=== PATIENT | female | born 1940 | race Caucasian/White ===

== ENCOUNTER 2023-09-19 08:40 | Outpatient (RCR) | payer MEDICARE, OTHER, SELFPAY | END 2023-09-19 23:59 | disposition home or self-care (01) | LOC: RPT 08:40 | PROVIDERS: ATTENDING PHYSICIAN Internal Medicine Gastroenterology; FAMILY PHYSICIAN Internal Medicine | DX: M62.89 Other specified disorders of muscle (principal); N39.3 Stress incontinence (female) (male); K59.00 Constipation, unspecified; N39.41 Urge incontinence; Z73.6 Limitation of activities due to disability | CPT/HCPCS: 97163; 97530 ==

== ENCOUNTER → 2023-09-25 11:55 | Outpatient (REF) | payer MEDICARE, OTHER, SELFPAY | LOC: MRI 3T 11:55 | PROVIDERS: ATTENDING PHYSICIAN Internal Medicine Gastroenterology; PRIMARYCARE PHYSICIAN Internal Medicine | DX: K86.2 Cyst of pancreas (principal) | CPT/HCPCS: 74183; A9575 ==

== ENCOUNTER 2023-10-22 14:04 | Outpatient (RCR) | payer MEDICARE, OTHER, SELFPAY | END 2023-10-22 23:59 | disposition home or self-care (01) | LOC: RPT 14:04 | PROVIDERS: ATTENDING PHYSICIAN Internal Medicine Gastroenterology; FAMILY PHYSICIAN Internal Medicine | DX: M62.89 Other specified disorders of muscle (principal); N39.3 Stress incontinence (female) (male); K59.00 Constipation, unspecified; N39.41 Urge incontinence; Z73.6 Limitation of activities due to disability | CPT/HCPCS: 97110; 97112; 97140; 97530 ==

== ENCOUNTER 2023-11-18 14:12 | Outpatient (RCR) | payer MEDICARE, OTHER, SELFPAY | END 2023-11-18 23:59 | disposition home or self-care (01) | LOC: RPT 14:12 | PROVIDERS: ATTENDING PHYSICIAN Internal Medicine Gastroenterology; FAMILY PHYSICIAN Internal Medicine | DX: M62.89 Other specified disorders of muscle (principal); N39.3 Stress incontinence (female) (male); K59.00 Constipation, unspecified; N39.41 Urge incontinence; Z73.6 Limitation of activities due to disability | CPT/HCPCS: 97014; 97110; 97112; 97530 ==

== ENCOUNTER → 2023-12-09 13:26 | Outpatient (REF) | payer MEDICARE, OTHER, SELFPAY | LOC: PAVMRI 13:26 | PROVIDERS: ATTENDING PHYSICIAN Pain Medicine Interventional Pain Medicine; FAMILY PHYSICIAN Internal Medicine | DX: M54.16 Radiculopathy, lumbar region (principal) | CPT/HCPCS: 72148 ==

== ENCOUNTER → 2023-12-29 11:18 | Outpatient (REF) | payer MEDICARE, OTHER, SELFPAY ==
[2023-12-29 11:53] LABS: % Basophils 0.4 % (0-2); % Eosinophils 5.5 % (0-6); % Immature Granulocytes 0.3 % (0-0.5); % Lymphocytes 39.8 % (20.5-51.1); % Monocytes 11.5 % (1.7-9.3); % Neutrophils 42.5 % (42.2-75.2); Absolute Eosinophils 0.4 10^3/uL (0-0.7); Absolute Lymphocytes 2.7 10^3/uL (1.2-3.4); Absolute Monocytes 0.8 10^3/uL (0.1-0.6); Absolute Neutrophils 2.8 10^3/uL (1.4-6.5); Hematocrit 41.2 % (37.0-47.0); Hemoglobin 13.3 g/dL (12.0-16.0); Mean Corp Hgb Conc. 32.3 g/dL (33.0-37.0); Mean Corpuscular Volume 89.8 fL (81.0-99.0); Mean Platelet Volume 10.8 fL (7.4-10.4); Nucleated Red Blood Cells % 0 %; Platelet Count 197 10^3/uL (130-400); Red Blood Cell Count 4.59 10^6/uL (4.20-5.40); Red Cell Dist. Width 13.3 % (11.5-14.5); White Blood Cell Count 6.7 10^3/uL (4.8-10.8)
[2023-12-29 12:48] LABS: ALT (SGPT) 24 U/L (0-35); AST (SGOT) 27 U/L (14-36); Albumin 3.6 g/dl (3.5-5.0); Alkaline Phosphatase 66 U/L (38-126); Blood Urea Nitrogen 16 mg/dl (7-17); Calcium 9.3 mg/dl (8.4-10.2); Carbon Dioxide 30 mmol/L (22-30); Chloride 104 mmol/L (98-107); Glucose 85 mg/dl (70-99); HDL Cholesterol 82 mg/dl; LDL Cholesterol, Calculated 41 mg/dl; Potassium 3.7 mmol/L (3.5-5.1); Sodium 139 mmol/L (135-145); Total Bilirubin 0.7 mg/dl (0.2-1.3); Total Cholesterol 137 mg/dl (50-199); Total Protein 5.8 g/dl (6.3-8.2); Triglyceride 70 mg/dl (10-149); Very Low Density Lipoprotein 14 mg/dl (0-30); eGFR > 60.00
== END ==
LOC: REG 11:18
PROVIDERS: ATTENDING PHYSICIAN Internal Medicine
DX: I10 Essential (primary) hypertension (principal); E78.5 Hyperlipidemia, unspecified
CPT/HCPCS: 36415; 80053; 80061; 85025

== ENCOUNTER → 2024-01-28 12:47 | Outpatient (REF) | payer MEDICARE, OTHER, SELFPAY | LOC: RAD 12:47 | PROVIDERS: ATTENDING PHYSICIAN Internal Medicine | DX: M81.0 Age-related osteoporosis without current pathological fracture (principal) | CPT/HCPCS: 77080 ==

== ENCOUNTER 2024-03-05 23:13 | Observation (INO) | payer MEDICARE, OTHER, SELFPAY ==
[2024-03-05 15:36] VITALS: BP 131/81
--- NOTE | 2024-03-05 17:28 | ED.GENMED ---
History of Present Illness
General
Chief Complaint: Back Pain
Source: patient
Exam Limitations: none
Time Seen by Provider: 03/05/24 17:28
Nursing documentation reviewed up to this point in time: agreed with
History of Present Illness
History of Present Illness:
Patient to ED with complaint of left hip pain. Symptoms started 3 days ago. No history of trauma. Pain continues to worsen. Unable to bear weight now. Brought to ED by brother for eval.
Past History
Past History
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
diverticulitis, PNA, Kidney stones, Bronchiectasis, Migraines, Diverticulitis)
ED Past Surgical History: Gynecological (Hysterectomy), Orthopedic (Right knee replacement), Urological (Bladder suspension) and Other (Hernia repair, Bunionectomy Bilaterally)
Social History
Tobacco: Former smoker
Alcohol: None
Drug: None
Personal:
Living: with family
Employment: Retired
Family History
Family History: Other (Noncontributory)
Review of Systems
Review of Systems
Allergies reviewed?: Yes
All Other Systems: ROS reviewed and negative except as documented in HPI and ROS
Constitutional: Reports no symptoms
EENT: Reports no symptoms
Respiratory: Reports no symptoms
Cardiac: Reports no symptoms
ABD/GI: Reports no symptoms
: Reports no symptoms
Musculoskeletal: Reports joint pain (left hip pain)
Skin: Reports no symptoms
Neurological: Reports no symptoms
Psychiatric: Reports no symptoms
Phy Exam
General Physical Exam
General Presentation: well appearing and moderate distress
General age: appears stated age
General Skin: warm and dry
General Habitus: normal
General Mental: alert
Cardiovascular Exam
Cardiovascular Exam: regular rate/rhythm and no edema
Pulmonary Exam
Pulmonary Exam: no respiratory distress and chest non tender
Neurological Exam
Neurological Exam: alert and oriented x3
Musculoskeletal Exam
Musculoskeletal Exam: neuro vasc intact and other (Limited ROM to left hip. Pain laterally. No redness or swelling. Pain radiates into left buttocks and left thigh)
Skin Exam
Skin Exam: normal color, warm/dry and no rash
Psychiatric Exam
Psychiatric Exam: normal mood/affect
Course
Orders/Labs/Results
Orders:
Orders
03/05/24 18:23
Morphine Sulfate 2 mg IV NOW STA
Hip, Left 2-3 Views [CR Hip - LT w/wo Pel 2-3 Vw*] Urgent
Comment:
Reason For Exam: pain
Include a pelvis x-ray?: Yes
03/05/24 20:13
CT Lower Ext W/o Iv Cont Lt Urgent
Comment:
Reason For Exam: pain, unable to bear weight, attn left hip
03/05/24 20:49
Basic Metabolic Panel Urgent
Complete Blood Count/With Diff Urgent
03/05/24 21:30
ORTHOPEDIC CONSULT Urgent
Consulting Provider: Abdoulaye Simons
Was physician already notified: Yes
03/05/24 21:46
Lumbar Spine Complete, 4 View [CR Lumbar Spine Comp Min 4 Vw*] Urgent
Comment:
Reason For Exam: pain
Abnormal Lab Results
03/05/24
20:49
RBC 4.18 L 10^6/uL
(4.20-5.40)
Hct 35.8 L %
(37.0-47.0)
Absolute Monos (auto) 0.7 H 10^3/uL
(0.1-0.6)
Creatinine 0.5 L mg/dL
(0.6-1.0)
Calcium 8.3 L mg/dl
(8.4-10.2)
03/05/24 20:49
03/05/24 20:49
Vital Signs
Initial and Last Documented VS:
Initial Vital Signs
Temp Pulse Resp BP Pulse Ox
99.3 F 63 18 131/81 97
03/05/24 15:36 03/05/24 15:36 03/05/24 15:36 03/05/24 15:36 03/05/24 15:36
Last Documented Vital Signs
Temp Pulse Resp BP Pulse Ox
99.3 F 62 16 148/86 93
03/05/24 15:36 03/05/24 22:31 03/05/24 22:31 03/05/24 22:00 03/05/24 22:31
*Radiology
Radiology exam reviewed: radiology read reviewed
*Pulse Oximetry
Patient hypoxic: no
*Critical Care Note
Total Time (30-74mins, 75-104mins- exclusive of procedures): Not Applicable
Update Note
Update Note:
NO fracture noted on xray. Some relief with IV morphine but is unable to ambulate or transfer due to pain. Lives alone. WIll CT LLE, admit to hospitalist for pain control, ortho consult.
ED Attending Note
-
Portions of this chart may have been created with voice recognition software.� Occasional wrong word or��sound alike� substitutions may have occurred due to the inherent limitations of voice recognition software.
Discharge Plan
Departure
Patient Disposition: Admit
Date of Disposition: 03/05/24
Time of Disposition: 21:29
Presentation/result/management discussed w/ accepting MD/DO: Hospitalist
Patient with high blood pressure during this ER visit?: No
Condition: Fair
Covid-19: Not Applicable
Discharge Problem:
Acute pain of left hip, Ambulatory dysfunction
Prescriptions:
No Action
albuterol sulfate 1 PUFF HFA aerosol inhaler
1 puff inhalation R Q4HPRN PRN (Reason: sob)
multivitamin with folic acid [Tab-A-Ailyn] 1 TABLET tablet
1 tab PO QPM
ascorbic acid (vitamin C) [Vitamin C] 500 MG tablet
1,000 mg PO QPM
budesonide 0.5 MG/2 ML suspension for nebulization
0.5 mg inhalation R BID
fluticasone propionate 1 SPRAY spray,suspension
2 spray intranasal DAILY PRN (Reason: congestion)
escitalopram oxalate 5 MG tablet
5 mg PO DAILY
acetaminophen [Acetaminophen Extra Strength] 500 mg tablet
500 mg PO Q6H PRN (Reason: pain) Qty: 20 0RF
atorvastatin 20 mg tablet
20 mg PO DAILY@1100
ipratropium-albuterol 0.5 mg-3 mg(2.5 mg base)/3 mL solution for nebulization
3 ml INHALATION R BID
omeprazole 40 mg capsule,delayed release(DR/EC)
40 mg PO DAILY
aspirin 81 mg Tablet,Delayed Release (Dr/Ec)
81 mg PO DAILY@1100
calcium carbonate [Tums] 200 mg calcium (500 mg) Tablet,Chewable
200 mg PO BID PRN (Reason: heartburn/indigestion)
carboxymethylcellulose sodium 1 % Drops, Liquid Gel
2 drp BOTH EYES HS
guaifenesin [Mucinex] 600 mg Tablet Extended Release 12hr
600 mg PO Q12H PRN (Reason: congestion)
Qvar RediHaler 80 mcg/actuation HFA aerosol breath activated
2 inh INHALATION R BID
acetaminophen [Tylenol Extra Strength] 500 MG tablet
1,000 mg PO HS
Rx Instructions:
scheduled/standing order dosing--keep in system
carvedilol 12.5 mg Tablet
12.5 mg PO BID Qty: 60 5RF
lisinopril 5 mg Tablet
5 mg PO DAILY Qty: 30 5RF
furosemide 20 mg Tablet
20 mg PO DAILY Qty: 30 5RF
amlodipine 2.5 mg Tablet
2.5 mg PO 1XD
Referrals:
Matilda Martin MD [Family Provider] -
Interventions
Interventions:
*Risk Screen - Suicide Last Done: 03/05/24 20:43
*General Assessment Last Done: 03/05/24 15:36
*Neglect/Abuse Screening Last Done: 03/05/24 20:43
*ED COVID-19 Vaccine History Last Done: 03/05/24 15:40
ED-Musculoskeletal Assessment Last Done: 03/05/24 16:36
Discharge Date and Time
Print Language: LITHUANIAN
Musculoskeletal Injury Exam
Musculoskeletal Injury Exam
Left Hip:
Pain with Movement?: Moderate
Tender to palpation?: Moderate
Soft tissue swelling?: None
External deformity and angulation?: None
Joint effusion?: None
Contusion?: None
Hematoma-local bleeding into tissue?: None
Crepitus with movement?: No
Joint instability?: No
Malalignment/deformity?: No
Range of motion: Limited
Distal skin color and temperature: normal-warm & good color
Capillary Refill: normal
Normal distal neurovascular exam?: Yes
Peripheral Pulses: posterior tibial (left): 3+ and dorsalis pedis (left): 3+
[2024-03-05] MEDS: MORPHINE SULFATE 2 MG IV (19:11)
[2024-03-05 20:19] VITALS: BP 145/86
[2024-03-05 20:43] VITALS: BMI 25.1
[2024-03-05 20:55] LABS: % Basophils 0.7 % (0-2); % Eosinophils 3.4 % (0-6); % Immature Granulocytes 0.2 % (0-0.5); % Lymphocytes 31.3 % (20.5-51.1); % Monocytes 8.9 % (1.7-9.3); % Neutrophils 55.5 % (42.2-75.2); Absolute Basophils 0.1 10^3/uL (0-0.2); Absolute Eosinophils 0.3 10^3/uL (0-0.7); Absolute Lymphocytes 2.6 10^3/uL (1.2-3.4); Absolute Monocytes 0.7 10^3/uL (0.1-0.6); Absolute Neutrophils 4.5 10^3/uL (1.4-6.5); Hematocrit 35.8 % (37.0-47.0); Hemoglobin 12.3 g/dL (12.0-16.0); Mean Corp Hgb Conc. 34.4 g/dL (33.0-37.0); Mean Corpuscular Hgb 29.4 pg (27.0-31.0); Mean Corpuscular Volume 85.6 fL (81.0-99.0); Mean Platelet Volume 10.3 fL (7.4-10.4); Nucleated Red Blood Cells % 0 %; Platelet Count 185 10^3/uL (130-400); Red Blood Cell Count 4.18 10^6/uL (4.20-5.40); Red Cell Dist. Width 13.7 % (11.5-14.5); White Blood Cell Count 8.2 10^3/uL (4.8-10.8)
[2024-03-05 21:00] VITALS: BP 151/79
[2024-03-05 21:22] LABS: Blood Urea Nitrogen 14 mg/dl (7-17); Calcium 8.3 mg/dl (8.4-10.2); Carbon Dioxide 27 mmol/L (22-30); Chloride 107 mmol/L (98-107); Estimated Creatinine Clearance 50 ml/min; Glucose 81 mg/dl (70-99); Sodium 139 mmol/L (135-145); eGFR > 60.00
--- NOTE | 2024-03-05 21:39 | HPS.HSE ---
Addendum entered and electronically signed by Duke Rico DO 03/05/24 23:36:
Patient seen and examined independently. Agree with findings and plan as set forth by EMMANUEL Chung.
Patient is an 83y F with PMH significant for COPD, hypertension, prior CVA and known lumbar spinal stenosis and DDD who presents to ED complaining of L hip pain radiating into the LLE to the knee. Patient states that pain started on Friday.
She denies any injury or trauma prior to onset of the pain. She notes pain in the L lower back with radiation around the hip and into the groin and down the lateral aspect of the leg to the knee. Exam does reveal this area to be fairly tender.
Limited SLR on the L due to pain.
Patient had MR done in 11/2023 showing spinal stensosis and DDD with bilateral nerve impingement at L4-L5. She underwent LESI on the RIGHT at the time with moderate results.
Ass:
Radicular LLE Pain
Lumbar Spinal Stenosis / DDD
Benign Hypertension
Mild Asthma
ASCVD / Prior CVA
COPD without ACute Exacerbation
Anxiety / Depression
GERD
Plan:
Observe overnight for further evaluation.
Pain control, PT / OT evaluations.
If symptoms worsen or persist - consider IR eval for possible LESI.
Could likely do so based on findings from prior MR done in November 2023.
Continue usual outpatient med regimen.
Original Note:
Family Physician
-
Family Physician: Matilda Martin
Chief Complaint
-
left hip pain
History of Present Illness
87-year-old with past medical history for COPD, CVA, GERD, hypertension, lipidemia anxiety, heart murmur, rheumatic heart disease, diverticulitis, kidney stones, migraines, diverticulitis presented to us with left lower back pain radiating to left
groin, left thigh for past 3 days. She cannot even put pressure on her legs. She does not have any strength on the leg. Patient cannot move or walk. Patient Denied any headache dizziness or syncopal episode. Patient denied any fever, chills,
chest pain short of breath. Patient denied abdominal pain, nausea, vomiting, diarrhea. Patient denied dysuria hematuria
Medical History
Past Medical History
Past Medical History: Reports Other
Additional Past Medical History:
Asthma, CAD, COPD (bronchiectasis), CVA (left retinal arterial occlusion), GERD, HTN, Hypercholesterolemia, Valvular Disease, Psychiatric (anxiety) and Other (heart murmur, rheumatic heart disease, diverticulitis, PNA, Kidney stones, Migraines,
Diverticulitis
Past Surgical History: Reports Other
Additional Past Surgical History:
Hysterectomy
Right knee replacement
Bladder suspension
Hernia repair
Bilateral bunionectomy
Social History
Tobacco: Former Smoker
Alcohol: Occasional
Drug: None
Personal: Single
Living: Alone
Family History
Family History: Not pertinent
Allergies / Home Medications
Allergies reflects when Allergies were last updated in [facility].
Home Medications with original date entered in [facility]
Allergy/Medication List:
Allergies
Allergy/AdvReac Type Severity Reaction Status Date / Time
adhesive [Adhesive] Allergy Rash Verified 03/05/24 15:41
adhesive tape Allergy Unknown Verified 03/05/24 15:41
amoxicillin [From Augmentin] Allergy Nausea / Verified 03/05/24 15:41
Vomiting
barley Allergy abdominal Verified 03/05/24 15:41
pain-celiac
Beta-Blockers Allergy Swelling Verified 03/05/24 15:41
(Beta-Adrenergic Bloc
cefaclor [From Ceclor] Allergy rash and Verified 03/05/24 15:41
nausea
ceftizoxime Allergy Swelling Verified 03/05/24 15:41
ciprofloxacin [From Cipro] Allergy Swelling Verified 03/05/24 15:41
clavulanic acid Allergy Nausea Verified 03/05/24 15:41
[From Augmentin]
gluten Allergy abdominal Verified 03/05/24 15:41
pain
latex [Latex] Allergy Rash Verified 03/05/24 15:41
metronidazole [From Flagyl] Allergy Nausea Verified 03/05/24 15:41
oats Allergy abdominal Verified 03/05/24 15:41
pain-celiac
propranolol Allergy Swelling Verified 03/05/24 15:41
simvastatin Allergy knee Verified 03/05/24 15:41
swelling
Sulfa (Sulfonamide Allergy Rash Verified 03/05/24 15:41
Antibiotics)
sulfisoxazole Allergy Nausea Verified 03/05/24 15:41
tetanus toxoid, adsorbed Allergy rash, Verified 03/05/24 15:41
swelling
of tongue
wheat Allergy abdominal Verified 03/05/24 15:41
pain-celiac
Home Medications
albuterol sulfate 90 mcg/actuation aerosol inhaler 1 puff inhalation R Q4HPRN PRN sob 01/30/21
multivitamin with folic acid 400 mcg tablet (Tab-A-Ailyn) 1 tab PO QPM Supplement 01/30/21
ascorbic acid (vitamin C) 500 mg tablet (Vitamin C) 1,000 mg PO QPM Supplement 01/23/22
budesonide 0.5 mg/2 mL suspension for nebulization 0.5 mg inhalation R BID Lung/breathing issues 01/23/22
escitalopram oxalate 5 mg tablet 5 mg PO DAILY Depression 01/23/22
fluticasone propionate 50 mcg/actuation nasal spray,suspension 2 spray intranasal DAILY PRN congestion 01/23/22
acetaminophen 500 mg tablet (Acetaminophen Extra Strength) 500 mg PO Q6H PRN pain #20 tabs 10/14/22
acetaminophen 500 mg tablet (Tylenol Extra Strength) 1,000 mg PO HS 12/03/22
aspirin 81 mg tablet,delayed release 81 mg PO DAILY@1100 12/03/22
atorvastatin 20 mg tablet 20 mg PO DAILY@1100 12/03/22
beclomethasone dipropionate 80 mcg/actuation HFA breath activated aerosol (Qvar RediHaler) 2 inh inhalation R BID 12/03/22
calcium carbonate (Tums) 200 mg PO BID PRN heartburn/indigestion 12/03/22
carboxymethylcellulose sodium 1 % eye liquid gel drops 2 drp BOTH EYES HS 12/03/22
guaifenesin 600 mg tablet, extended release 12 hr (Mucinex) 600 mg PO Q12H PRN congestion 12/03/22
ipratropium 0.5 mg-albuterol 3 mg (2.5 mg base)/3 mL nebulization soln 3 ml inhalation R BID 12/03/22
omeprazole 40 mg capsule,delayed release 40 mg PO DAILY 12/03/22
carvedilol 12.5 mg tablet 12.5 mg PO BID #60 tabs 12/06/22
furosemide 20 mg tablet 20 mg PO DAILY #30 tabs 12/06/22
lisinopril 5 mg tablet 5 mg PO DAILY #30 tabs 12/06/22
amlodipine 2.5 mg tablet 2.5 mg PO 1XD 03/05/24
Review of Systems
-
Constitutional: Reports No Symptoms
EENT: Reports No Symptoms
Respiratory: Reports No Symptoms
Cardiac: Reports No Symptoms
Abdomen/GI: Reports No Symptoms
: Reports No Symptoms
Musculoskeletal: Reports Other (Left lower extremities pain)
Skin: Reports No Symptoms
Neurological: Reports No Symptoms
Endocrine: Reports No Symptoms
Hematologic/Lymphatic: Reports No Symptoms
Psych: Reports No Symptoms
Physical Exam
Vital Signs
Vital Signs
Temp Pulse Resp BP Pulse Ox
99.3 F 63 18 145/86 97
03/05/24 15:36 03/05/24 15:36 03/05/24 15:36 03/05/24 20:19 03/05/24 20:21
Physical Exam
General: Well Developed, Well Nourished and No Apparent Distress
HEENT: NormoCephalic, Moist mucous membranes and Atraumatic
Respiratory: Clear
Cardiac: S1/S2 and Regular Rhythm; No Murmur or Rub
GI: Soft, Non Tender, Non Distended and Normal Bowel Sounds; No Organomegaly
Rectal: Deferred by Provider
Musculoskeletal: No Clubbing, No Cyanosis, No Edema and Other (Left lower extremities weakness)
Skin: No Rash
Neuro: AO x 3 and Nonfocal/grossly intact
Psych: Calm
Laboratory Results
-
03/05/24 20:49
03/05/24 20:49
Laboratory Results
Total Bilirubin Cancelled 03/05/24 20:49
AST Cancelled 03/05/24 20:49
ALT Cancelled 03/05/24 20:49
Alkaline Phosphatase Cancelled 03/05/24 20:49
Data Reviewed
-
Diagnostic Radiology: Report Reviewed by me
CT Scan: Report Reviewed by me
Lab Data: Labs Reviewed by me
Impression/Plan
-
# Left hip pain/ambulatory dysfunction
-PT/OT consulted
-Orthopedic consulted
-Lower extremity CT with no acute fracture
-Hip x-ray Stable mild degenerative changes of the left hip without evidence for acute fracture or dislocation. Mild to moderate degenerative changes of the pubis symphysis, bilateral sacroiliac joints and partially visualized lower lumbar spine.
-tylenol ATC
-lidocaine patch
-gabapentin added
# Hypertension
- Norvasc, Coreg, lisinopril continued
# Hypercholesterolemia
- Continue statin
# Asthma
- continue schedule inhalers
# COPD (bronchiectasis)
- continue scheduled inhalers
# CVA
- continue atorvastatin,
# GERD
- continue omeprazole
# anxiety
- continue escitalopram
# Lower extremity edema
-Furosemide continued
-No ankle swelling noted today
# DVT prophylaxis
-Lovenox subcu
# CODE STATUS
-full code
[2024-03-05 22:00] VITALS: BP 148/86
[2024-03-05 23:00] VITALS: BP 105/56
[2024-03-06] VITALS (12 sets, daily range): BP systolic 109–174; BP diastolic 61–91; BMI 24.0
[2024-03-06] MEDS: REFRESH CELLUVISC GEL 2 DROPS BOTH EYES ×2 (01:19→21:26)
[2024-03-06] MEDS: NEURONTIN 100 MG PO ×2 (01:19→21:29)
[2024-03-06 05:57] LABS: Hematocrit 38.6 % (37.0-47.0); Hemoglobin 12.9 g/dL (12.0-16.0); Mean Corp Hgb Conc. 33.4 g/dL (33.0-37.0); Mean Corpuscular Hgb 29.9 pg (27.0-31.0); Mean Corpuscular Volume 89.4 fL (81.0-99.0); Mean Platelet Volume 10.9 fL (7.4-10.4); Platelet Count 189 10^3/uL (130-400); Red Blood Cell Count 4.32 10^6/uL (4.20-5.40); Red Cell Dist. Width 13.4 % (11.5-14.5); White Blood Cell Count 8.4 10^3/uL (4.8-10.8)
[2024-03-06 06:05] LABS: Blood Urea Nitrogen 14 mg/dl (7-17); Calcium 8.3 mg/dl (8.4-10.2); Carbon Dioxide 28 mmol/L (22-30); Chloride 107 mmol/L (98-107); Estimated Creatinine Clearance 50 ml/min; Glucose 78 mg/dl (70-99); Sodium 139 mmol/L (135-145); eGFR > 60.00
[2024-03-06] MEDS: NORVASC 2.5 MG PO (07:53)
[2024-03-06] MEDS: TYLENOL 1000 MG PO ×3 (07:53→21:25)
[2024-03-06] MEDS: LEXAPRO 5 MG PO (07:53)
[2024-03-06] MEDS: COREG 12.5 MG PO ×2 (07:53→19:44)
[2024-03-06] MEDS: LASIX 20 MG PO (07:53)
[2024-03-06] MEDS: ZESTRIL 5 MG PO (07:53)
[2024-03-06] MEDS: PROTONIX 40 MG PO (07:54)
[2024-03-06] MEDS: LIDOCAINE 4% PATCH 1 PATCH TOPICAL (07:54)
[2024-03-06] MEDS: DUONEB 3 ML INH ×2 (09:07→20:05)
[2024-03-06] MEDS: PULMICORT 0.5 MG INH ×2 (09:08→20:05)
[2024-03-06] MEDS: LIPITOR 20 MG PO (12:39)
[2024-03-06] MEDS: ASPIR LOW (ENTERIC COATED) 81 MG PO (12:39)
--- NOTE | 2024-03-06 13:04 | W.PN.HOSP.TC ---
Today's Communication/Plan
-
see plan
Assessment / Plan
Assessment / Plan
# Left hip pain/ambulatory dysfunction
-PT/OT consulted
-Lower extremity CT with no acute fracture
-Hip x-ray Stable mild degenerative changes of the left hip without evidence for acute fracture or dislocation. Mild to moderate degenerative changes of the pubis symphysis, bilateral sacroiliac joints and partially visualized lower lumbar spine.
-discussed with ortho over text, no need for formal consult
-tylenol ATC
-lidocaine patch
-gabapentin added - continue current dose
# Hypertension
- Norvasc, Coreg, lisinopril continued
# Hypercholesterolemia
- Continue statin
# Asthma
- continue schedule inhalers
# COPD (bronchiectasis)
- continue scheduled inhalers
# CVA
- continue atorvastatin,
# GERD
- continue omeprazole
# anxiety
- continue escitalopram
# Lower extremity edema
-Furosemide continued
-No ankle swelling noted today
# DVT prophylaxis
-Lovenox subcu
# CODE STATUS
-full code
Anticipated Discharge: 24 - 48 hours
Subjective/Interval History
-
Date of Service: March 06, 2024
pain a bit improved from yesterday
difficulty walking with PT, lives alone
Objective Data
-
Labs:
Laboratory Results
03/06/24
05:36
WBC 8.4
Hgb 12.9
Hct 38.6
Plt Count 189
Sodium 139
Potassium 3.0 L
Chloride 107
Carbon Dioxide 28
BUN 14
Creatinine 0.6
Glucose 78
Calcium 8.3 L
Vital Signs:
Vital Signs
Temp Pulse Resp BP Pulse Ox
98.4 F 70 16 149/91 93
07/13/24 07:46 03/06/24 09:13 03/06/24 09:13 03/06/24 07:46 03/06/24 09:13
Review of Systems
-
History Source: Patient
All other systems: Reviewed and negative
Physical Exam
-
General: No Apparent Distress and Conversant
HEENT: PERRLA
Respiratory: Clear to Auscultation; Negative Wheezes
Cardiac: S1/S2
GI: Soft and Nontender
Musculoskeletal: No Edema
Skin: Warm and Dry; Negative Rash
Neuro: AO x 3
Psych: Calm
Data Reviewed
-
Diagnostic Radiology: Report Reviewed by me
Labs: Labs Reviewed by me
[2024-03-06] MEDS: KCL 40 MEQ PO (13:08)
--- NOTE | 2024-03-06 13:22 | PTCARENOTE ---
Report called to [facility]W. Patient going to room 326.
[2024-03-06 14:52] LABS: Magnesium 1.9 mg/dl (1.6-2.3)
[2024-03-06] MEDS: LOVENOX 40 MG SC (16:41)
[2024-03-07 07:00] VITALS: BP 141/79
[2024-03-07 07:28] LABS: Blood Urea Nitrogen 16 mg/dl (7-17); Calcium 9.3 mg/dl (8.4-10.2); Carbon Dioxide 29 mmol/L (22-30); Chloride 105 mmol/L (98-107); Estimated Creatinine Clearance 38 ml/min; Glucose 95 mg/dl (70-99); Potassium 3.8 mmol/L (3.5-5.1); Sodium 137 mmol/L (135-145); eGFR > 60.00
[2024-03-07] MEDS: PULMICORT 0.5 MG INH ×2 (07:44→19:31)
[2024-03-07] MEDS: DUONEB 3 ML INH ×2 (07:44→19:31)
[2024-03-07] MEDS: LIDOCAINE 4% PATCH 1 PATCH TOPICAL (08:52)
[2024-03-07] MEDS: LEXAPRO 5 MG PO (08:52)
[2024-03-07] MEDS: NORVASC 2.5 MG PO (08:52)
[2024-03-07] MEDS: PROTONIX 40 MG PO (08:52)
[2024-03-07] MEDS: TYLENOL 1000 MG PO ×3 (08:52→21:02)
[2024-03-07] MEDS: ZESTRIL 5 MG PO (08:53)
[2024-03-07] MEDS: LASIX 20 MG PO (08:53)
[2024-03-07] MEDS: COREG 12.5 MG PO ×2 (08:54→19:54)
--- NOTE | 2024-03-07 09:15 | W.PN.HOSP.TC ---
Today's Communication/Plan
-
dispo planning
increase Gabapentin
Assessment / Plan
Assessment / Plan
# Left hip pain/ambulatory dysfunction
-PT/OT consulted
-Lower extremity CT without acute fracture
-Hip x-ray Stable mild degenerative changes of the left hip without evidence for acute fracture or dislocation. Mild to moderate degenerative changes of the pubis symphysis, bilateral sacroiliac joints and partially visualized lower lumbar spine.
-discussed with ortho over text, no need for formal consult
-tylenol ATC
-lidocaine patch
-gabapentin added - will increase to 200mg qhs
-PT recommending SNF
# Hypertension
- Norvasc, Coreg, lisinopril continued
# Hypercholesterolemia
- Continue statin
# Asthma
- continue schedule inhalers
# COPD (bronchiectasis)
- continue scheduled inhalers
# CVA
- continue atorvastatin,
# GERD
- continue omeprazole
# anxiety
- continue escitalopram
# Lower extremity edema
-Furosemide continued
-No ankle swelling noted today
# DVT prophylaxis
-Lovenox subcu
# CODE STATUS
-full code
Anticipated Discharge: 24 - 48 hours
Subjective/Interval History
-
Date of Service: March 07, 2024
pain slightly improved
still has groin discomfort
Objective Data
-
Labs:
Laboratory Results
03/07/24
06:23
Sodium 137
Potassium 3.8 D
Chloride 105
Carbon Dioxide 29
BUN 16
Creatinine 0.7
Glucose 95
Calcium 9.3
Vital Signs:
Vital Signs
Temp Pulse Resp BP Pulse Ox
97.6 F 61 18 141/79 95
03/07/24 07:00 03/07/24 08:52 03/07/24 07:47 03/07/24 08:52 03/07/24 07:47
Review of Systems
-
History Source: Patient
All other systems: Reviewed and negative
Physical Exam
-
General: No Apparent Distress and Conversant
HEENT: PERRLA
Respiratory: Clear to Auscultation; Negative Wheezes
Cardiac: S1/S2
GI: Soft and Nontender
Musculoskeletal: No Edema
Skin: Warm and Dry; Negative Rash
Neuro: AO x 3 and Other (can life b/l LE off bed > 5 seconds)
Psych: Calm
Data Reviewed
-
Diagnostic Radiology: Report Reviewed by me
Labs: Labs Reviewed by me
[2024-03-07] MEDS: ASPIR LOW (ENTERIC COATED) 81 MG PO (10:17)
[2024-03-07] MEDS: LIPITOR 20 MG PO (10:17)
[2024-03-07] MEDS: COLACE 100 MG PO (10:17)
--- NOTE | 2024-03-07 12:53 | W.PN.HOSP.TC ---
Today's Communication/Plan
-
dispo planning
Assessment / Plan
Assessment / Plan
MRI 12/09/23
IMPRESSION:
At L4-5, disc uncovering and facet arthropathy contribute to severe spinal canal and moderate neural foraminal stenosis at this level, new from prior remote MRI 10/01/2012.
# Left hip pain/ambulatory dysfunction likely 2/2 lumbar radiculopathy
-Lower extremity CT without acute fracture
-Hip x-ray Stable mild degenerative changes of the left hip without evidence for acute fracture or dislocation. Mild to moderate degenerative changes of the pubis symphysis, bilateral sacroiliac joints and partially visualized lower lumbar spine.
-MRI from November 2023 with L4-L5 disc bulge with spinal canal and neural foraminal stenosis
-PT/OT consult appreciated, SNF recommended
-discussed with ortho over text, no need for formal consult
-tylenol ATC
-lidocaine patch
-gabapentin added - patient tolerating with improvement in pain, will increase to 200mg qhs
-PT recommending SNF
# Hypertension
- Norvasc, Coreg, lisinopril continued
# Hypercholesterolemia
- Continue statin
# Asthma
- continue schedule inhalers
# COPD (bronchiectasis)
- continue scheduled inhalers
# CVA
- continue atorvastatin,
# GERD
- continue omeprazole
# anxiety
- continue escitalopram
# Lower extremity edema
-Furosemide continued
-No ankle swelling noted today
# DVT prophylaxis
-Lovenox subcu
# CODE STATUS
-full code
Anticipated Discharge: Within 24 hours
Subjective/Interval History
-
Date of Service: March 07, 2024
continues to have some pain in groin
overall improving
Objective Data
-
Labs:
Laboratory Results
03/07/24
06:23
Sodium 137
Potassium 3.8 D
Chloride 105
Carbon Dioxide 29
BUN 16
Creatinine 0.7
Glucose 95
Calcium 9.3
Vital Signs:
Vital Signs
Temp Pulse Resp BP Pulse Ox
97.6 F 61 18 141/79 95
03/07/24 07:00 03/07/24 08:52 03/07/24 07:47 03/07/24 08:52 03/07/24 07:47
Review of Systems
-
History Source: Patient
All other systems: Reviewed and negative
Physical Exam
-
General: No Apparent Distress and Conversant
HEENT: PERRLA
Respiratory: Clear to Auscultation; Negative Wheezes
Cardiac: S1/S2
GI: Soft and Nontender
Musculoskeletal: No Edema
Skin: Warm and Dry; Negative Rash
Neuro: AO x 3 and Other (can life b/l LE off bed > 5 seconds)
Psych: Calm
Data Reviewed
-
Diagnostic Radiology: Report Reviewed by me
Labs: Labs Reviewed by me
[2024-03-07 15:00] VITALS: BP 136/66
--- NOTE | 2024-03-07 15:35 | CM ---
Initial assessment completed
Pharmacy verified: [facility], [address], [place], [place]
[facility] form explained and signed @ 1525
1st Primary Contact is daughter, Mague Baez, # [phone]
Patient lives alone in a one floor home; bathroom has stall shower w/ grab bar
PLOF: reports she was independent with ADLs and ambulation; drives
SNF/Home Health history: no SNF history; home health services w/ [facility] 2021
Explained that PT recommended SNF; patient was agreeable; list of SNFs reviewed; preferences are [facility], [place], and [facility]; referrals submitted via [facility]
Plan: Discharge to SNF when medical stable and bed is available
[2024-03-07] MEDS: LOVENOX 40 MG SC (18:25)
[2024-03-07] MEDS: COLACE PO (20:06)
[2024-03-07] MEDS: NEURONTIN 200 MG PO (21:02)
[2024-03-07] MEDS: REFRESH CELLUVISC GEL 2 DROPS BOTH EYES (21:02)
[2024-03-07 23:31] VITALS: BP 125/90
[2024-03-08 07:00] VITALS: BP 139/94
[2024-03-08 08:04] LABS: Blood Urea Nitrogen 14 mg/dl (7-17); Calcium 9.2 mg/dl (8.4-10.2); Carbon Dioxide 30 mmol/L (22-30); Chloride 107 mmol/L (98-107); Estimated Creatinine Clearance 44 ml/min; Glucose 82 mg/dl (70-99); Potassium 3.9 mmol/L (3.5-5.1); Sodium 139 mmol/L (135-145); eGFR > 60.00
[2024-03-08] MEDS: DUONEB 3 ML INH ×2 (08:05→19:24)
[2024-03-08] MEDS: PULMICORT 0.5 MG INH ×2 (08:05→19:24)
[2024-03-08] MEDS: NORVASC 2.5 MG PO (08:52)
[2024-03-08] MEDS: TYLENOL 1000 MG PO ×3 (08:53→21:49)
[2024-03-08] MEDS: COREG 12.5 MG PO (08:54)
[2024-03-08] MEDS: LEXAPRO 5 MG PO (08:54)
[2024-03-08] MEDS: PROTONIX 40 MG PO (08:54)
[2024-03-08] MEDS: ZESTRIL 5 MG PO (08:55)
[2024-03-08] MEDS: LIDOCAINE 4% PATCH 1 PATCH TOPICAL (08:56)
[2024-03-08] MEDS: LASIX 20 MG PO (08:57)
[2024-03-08] MEDS: COLACE PO (08:58)
[2024-03-08] MEDS: LIPITOR 20 MG PO (11:28)
[2024-03-08] MEDS: ASPIR LOW (ENTERIC COATED) 81 MG PO (11:28)
--- NOTE | 2024-03-08 11:41 | W.PN.HOSP.TC ---
Today's Communication/Plan
-
monitor vitals
see plan
PT/OT to see today
cw gabapentin
dc planning
Assessment / Plan
Assessment / Plan
MRI 12/09/23
IMPRESSION:
At L4-5, disc uncovering and facet arthropathy contribute to severe spinal canal and moderate neural foraminal stenosis at this level, new from prior remote MRI 10/01/2012.
# Left hip pain/ambulatory dysfunction likely 2/2 lumbar radiculopathy
-Lower extremity CT without acute fracture
-Hip x-ray Stable mild degenerative changes of the left hip without evidence for acute fracture or dislocation. Mild to moderate degenerative changes of the pubis symphysis, bilateral sacroiliac joints and partially visualized lower lumbar spine.
-MRI from November 2023 with L4-L5 disc bulge with spinal canal and neural foraminal stenosis
-PT/OT consult appreciated, SNF recommended
-discussed with ortho over text, no need for formal consult
-tylenol ATC
-lidocaine patch
-gabapentin added - patient tolerating with improvement in pain, increased to 200mg qhs
-PT recommending SNF
# Hypertension
- Norvasc, Coreg, lisinopril continued
# Hypercholesterolemia
- Continue statin
# Asthma
- continue schedule inhalers
# COPD (bronchiectasis)
- continue scheduled inhalers
# CVA
- continue atorvastatin,
# GERD
- continue omeprazole
# anxiety
- continue escitalopram
# Lower extremity edema
-Furosemide continued
-No ankle swelling noted today
# DVT prophylaxis
-Lovenox subcu
# CODE STATUS
-full code
General: No Apparent Distress and Conversant
HEENT: PERRLA
Respiratory: Clear to Auscultation; Negative Wheezes
Cardiac: S1/S2
GI: Soft and Nontender
Musculoskeletal: No Edema
Skin: Warm and Dry; Negative Rash
Neuro: AO x 3 and Other (can life b/l LE off bed > 5 seconds)
Psych: Calm
Anticipated Discharge: Within 24 hours
Subjective/Interval History
-
Date of Service: March 08, 2024
pain is better
Objective Data
-
Labs:
Laboratory Results
03/08/24
06:16
Sodium 139
Potassium 3.9
Chloride 107
Carbon Dioxide 30
BUN 14
Creatinine 0.6
Glucose 82
Calcium 9.2
Vital Signs:
Vital Signs
Temp Pulse Resp BP Pulse Ox
98.4 F 70 16 139/94 95
03/08/24 07:00 03/08/24 08:52 03/08/24 08:09 03/08/24 08:52 03/08/24 08:09
I&O
03/07/24 03/08/24 03/09/24
06:59 06:59 06:59
Intake Total 570 / 570
Output Total 1100 / 1100
Balance -530 / -530
[2024-03-08 12:31] VITALS: BP 118/68; PULSE 68; O2SAT 94
[2024-03-08 12:33] VITALS: BP 118/68; PULSE 68; O2SAT 94
[2024-03-08 15:00] VITALS: BP 96/55
[2024-03-08 16:43] VITALS: BP 98/60
--- NOTE | 2024-03-08 16:59 | CM ---
Case management following for d/c planning
PT/OT recommending HH
Discussed with pt - prefers [facility] - referral sent in [facility]
Reports will have family support
CM will follow for d/c needs
Plan - anticipate home with [facility] when medically stable
[2024-03-08] MEDS: LOVENOX 40 MG SC (17:11)
[2024-03-08] MEDS: COREG PO (19:52)
[2024-03-08] MEDS: COLACE 100 MG PO (19:56)
[2024-03-08] MEDS: NEURONTIN 200 MG PO (21:49)
[2024-03-08] MEDS: REFRESH CELLUVISC GEL 2 DROPS BOTH EYES (21:50)
[2024-03-08 23:26] VITALS: BP 133/73
[2024-03-09 06:46] LABS: Blood Urea Nitrogen 18 mg/dl (7-17); Calcium 9.4 mg/dl (8.4-10.2); Carbon Dioxide 29 mmol/L (22-30); Chloride 106 mmol/L (98-107); Estimated Creatinine Clearance 44 ml/min; Glucose 90 mg/dl (70-99); Potassium 3.7 mmol/L (3.5-5.1); Sodium 139 mmol/L (135-145); eGFR > 60.00
[2024-03-09] MEDS: PULMICORT 0.5 MG INH (07:42)
[2024-03-09] MEDS: DUONEB 3 ML INH (07:42)
[2024-03-09 07:45] VITALS: BP 134/70
[2024-03-09] MEDS: COLACE 100 MG PO (08:17)
[2024-03-09] MEDS: LASIX 20 MG PO (08:17)
[2024-03-09] MEDS: COREG 12.5 MG PO (08:17)
[2024-03-09] MEDS: PROTONIX 40 MG PO (08:17)
[2024-03-09] MEDS: TYLENOL 1000 MG PO (08:18)
[2024-03-09] MEDS: NORVASC 2.5 MG PO (08:18)
[2024-03-09] MEDS: ZESTRIL 5 MG PO (08:18)
[2024-03-09] MEDS: LEXAPRO 5 MG PO (08:18)
[2024-03-09] MEDS: LIDOCAINE 4% PATCH 1 PATCH TOPICAL (08:25)
--- NOTE | 2024-03-09 10:18 | VNURNOTE ---
"Spoke to patient over the phone. Explained [facility] services. The plan is for the patient to receive home PT, OT. Reviewed with patient [facility] will contact her within a few days from [place] to set up visits. Patient confirms she is active with PCP Dr Veronica (~) and will transition her care in March to [facility]. Referral updated with patient's cell # in [facility] ."
[2024-03-09 10:36] VITALS: BP 96/57
--- NOTE | 2024-03-09 10:55 | W.PN.HOSP.TC ---
Today's Communication/Plan
-
Monitor vital signs and see plan
Continue with gabapentin
Discharge today
Time of discharge 36 minutes
Assessment / Plan
Assessment / Plan
MRI 12/09/23
IMPRESSION:
At L4-5, disc uncovering and facet arthropathy contribute to severe spinal canal and moderate neural foraminal stenosis at this level, new from prior remote MRI 10/01/2012.
# Left hip pain/ambulatory dysfunction likely 2/2 lumbar radiculopathy
-Lower extremity CT without acute fracture
-Hip x-ray Stable mild degenerative changes of the left hip without evidence for acute fracture or dislocation. Mild to moderate degenerative changes of the pubis symphysis, bilateral sacroiliac joints and partially visualized lower lumbar spine.
-MRI from November 2023 with L4-L5 disc bulge with spinal canal and neural foraminal stenosis
-PT/OT consult appreciated, SNF recommended
-discussed with ortho over text, no need for formal consult
-tylenol ATC
-lidocaine patch
-gabapentin added - patient tolerating with improvement in pain, increased to 200mg qhs
-PT now recommending home health
# Hypertension
- Norvasc, Coreg, lisinopril continued
# Hypercholesterolemia
- Continue statin
# Asthma
- continue schedule inhalers
# COPD (bronchiectasis)
- continue scheduled inhalers
# CVA
- continue atorvastatin,
# GERD
- continue omeprazole
# anxiety
- continue escitalopram
# Lower extremity edema
-Furosemide continued
-No ankle swelling noted today
# DVT prophylaxis
-Lovenox subcu
# CODE STATUS
-full code
General: No Apparent Distress and Conversant
HEENT: PERRLA
Respiratory: Clear to Auscultation; Negative Wheezes
Cardiac: S1/S2
GI: Soft and Nontender
Musculoskeletal: No Edema
Skin: Warm and Dry
Neuro: AO x 3
Psych: Calm
Anticipated Discharge: Today
Subjective/Interval History
-
Date of Service: March 09, 2024
Denies pain
Objective Data
-
Labs:
Laboratory Results
03/09/24
06:03
Sodium 139
Potassium 3.7
Chloride 106
Carbon Dioxide 29
BUN 18 H
Creatinine 0.6
Glucose 90
Calcium 9.4
Vital Signs:
Vital Signs
Temp Pulse Resp BP Pulse Ox
98.1 F 62 16 134/70 95
03/09/24 07:45 03/09/24 07:46 03/09/24 07:46 03/09/24 07:45 03/09/24 07:46
I&O
03/08/24 03/09/24 03/10/24
06:59 06:59 06:59
Intake Total 570 / 570 1120 / 1120
Output Total 1100 / 1100
Balance -530 / -530 1120 / 1120
--- NOTE | 2024-03-09 11:11 | W.DCSUMMARY ---
Discharge Summary
Discharge Data
Date of Admission: 03/05/24
Date of Discharge: 03/09/24
-
Pending Results: No
Hospital Course
83-year-old female with past medical history of essential hypertension, anemia, asthma, COPD, CVA, GERD, anxiety, lower extremity edema, arthritis came to the hospital with left hip pain and ambulatory dysfunction which was likely thought was
secondary to lumbar radiculopathy. Lower extremity CT was done which did not show any signs of fracture. Patient was seen by physical therapy and was recommended home health on discharge. Patient pain continued to improve on gabapentin. Once
patient symptoms continue to improve, she was then discharged home with instructions to follow-up with all her physicians outpatient.
Discharge Plan
-
Patient Disposition: Home (Routine Discharge)
Discharge Diagnosis/Procedures: Lumbar spine radiculopathy
Amatory dysfunction
Hypertension
Diet: Regular
Activity: As tolerated
Driving Restrictions: As prior to admission
Bathing Restrictions: None
Other Services: PT and OT
Referrals:
Matilda Martin MD [Family Provider] - in less than 1 week
Prescriptions:
New
lidocaine 4 % Adhesive Patch,Medicated
1 patch topical DAILY Qty: 30 0RF
acetaminophen [Tylenol Extra Strength] 500 mg Tablet
1,000 mg PO TID Qty: 0 0RF
gabapentin 100 mg Capsule
200 mg PO HS Qty: 60 0RF
docusate sodium 100 mg Capsule
100 mg PO BID Qty: 0 0RF
Continued
albuterol sulfate 1 PUFF HFA aerosol inhaler
1 puff inhalation R Q4HPRN PRN (Reason: sob)
multivitamin with folic acid [Tab-A-Ailyn] 1 TABLET tablet
1 tab PO QPM
ascorbic acid (vitamin C) [Vitamin C] 500 MG tablet
1,000 mg PO QPM
budesonide 0.5 MG/2 ML suspension for nebulization
0.5 mg inhalation R BID
fluticasone propionate 1 SPRAY spray,suspension
2 spray intranasal DAILY PRN (Reason: congestion)
escitalopram oxalate 5 MG tablet
5 mg PO DAILY
atorvastatin 20 mg tablet
20 mg PO DAILY@1100
ipratropium-albuterol 0.5 mg-3 mg(2.5 mg base)/3 mL solution for nebulization
3 ml INHALATION R BID
omeprazole 40 mg capsule,delayed release(DR/EC)
40 mg PO DAILY
aspirin 81 mg Tablet,Delayed Release (Dr/Ec)
81 mg PO DAILY@1100
calcium carbonate [Tums] 200 mg calcium (500 mg) Tablet,Chewable
200 mg PO BID PRN (Reason: heartburn/indigestion)
carboxymethylcellulose sodium 1 % Drops, Liquid Gel
2 drp BOTH EYES HS
guaifenesin [Mucinex] 600 mg Tablet Extended Release 12hr
600 mg PO Q12H PRN (Reason: congestion)
Qvar RediHaler 80 mcg/actuation HFA aerosol breath activated
2 inh INHALATION R BID
carvedilol 12.5 mg Tablet
12.5 mg PO BID Qty: 60 5RF
lisinopril 5 mg Tablet
5 mg PO DAILY Qty: 30 5RF
furosemide 20 mg Tablet
20 mg PO DAILY Qty: 30 5RF
amlodipine 2.5 mg Tablet
2.5 mg PO 1XD
Discontinued
acetaminophen [Acetaminophen Extra Strength] 500 mg tablet
500 mg PO Q6H PRN (Reason: pain) Qty: 20 0RF
acetaminophen [Tylenol Extra Strength] 500 MG tablet
1,000 mg PO HS
Rx Instructions:
scheduled/standing order dosing--keep in system
Discharge Orders:
Discharge Patient (As Directed); Ordered 03/09/24
Ordered By: Jose Tony
Discharge Date and Time
Discharge Date/Time: 03/09/24 13:22
Print Language: AMHARIC
--- NOTE | 2024-03-09 11:38 | CM ---
Case management following for d/c planning
Pt for d/c today
Has ride home
[facility] accepted pt for HH needs
Plan - home with [facility]
[2024-03-09 12:03] VITALS: BP 110/70
[2024-03-09] MEDS: LIPITOR 20 MG PO (12:08)
[2024-03-09] MEDS: ASPIR LOW (ENTERIC COATED) 81 MG PO (12:08)
== END 2024-03-09 13:22 | disposition home health service (06) ==
LOC: 3 WEST ACU 23:13
PROVIDERS: Nurse Practitioner; Registered Nurse; ADMITTING PHYSICIAN Hospitalist; ATTENDING PHYSICIAN Internal Medicine; EMERGENCY PHYSICIAN Emergency Medicine; FAMILY PHYSICIAN Internal Medicine
DX: M51.16 Intervertebral disc disorders with radiculopathy, lumbar region (principal); M48.061 Spinal stenosis, lumbar region without neurogenic claudication; M53.3 Sacrococcygeal disorders, not elsewhere classified; R60.0 Localized edema; M54.9 Dorsalgia, unspecified; R26.2 Difficulty in walking, not elsewhere classified; M25.552 Pain in left hip; J44.89 Other specified chronic obstructive pulmonary disease; I25.10 Atherosclerotic heart disease of native coronary artery without angina pectoris; F32.A Depression, unspecified; J47.9 Bronchiectasis, uncomplicated; F41.9 Anxiety disorder, unspecified; E78.00 Pure hypercholesterolemia, unspecified; I10 Essential (primary) hypertension; K40.90 Unilateral inguinal hernia, without obstruction or gangrene, not specified as recurrent; K57.30 Diverticulosis of large intestine without perforation or abscess without bleeding; K21.9 Gastro-esophageal reflux disease without esophagitis; Z60.2 Problems related to living alone; Z87.442 Personal history of urinary calculi; Z87.01 Personal history of pneumonia (recurrent); Z87.19 Personal history of other diseases of the digestive system; Z87.891 Personal history of nicotine dependence; Z96.651 Presence of right artificial knee joint; Z90.710 Acquired absence of both cervix and uterus; Z86.73 Personal history of transient ischemic attack (TIA), and cerebral infarction without residual deficits; Z79.82 Long term (current) use of aspirin; Z79.51 Long term (current) use of inhaled steroids; Z88.1 Allergy status to other antibiotic agents; Z88.3 Allergy status to other anti-infective agents; Z91.040 Latex allergy status; Z88.0 Allergy status to penicillin; Z88.2 Allergy status to sulfonamides; Z88.7 Allergy status to serum and vaccine; Z91.018 Allergy to other foods; Z91.048 Other nonmedicinal substance allergy status
CPT/HCPCS: 72110; 73502; 73700; 80048; 83735; 85025; 85027; 87070; 94640; 96374; 97116; 97166; 97530; 99285; G0378

== ENCOUNTER 2024-06-24 16:22 | Emergency (ER) | payer MEDICARE, OTHER, SELFPAY ==
[2024-06-24 16:26] VITALS: BP 143/78
[2024-06-24 16:49] LABS: % Basophils 0.5 % (0-2); % Eosinophils 3.5 % (0-6); % Immature Granulocytes 0.1 % (0-0.5); % Lymphocytes 31.2 % (20.5-51.1); % Monocytes 10.8 % (1.7-9.3); % Neutrophils 53.9 % (42.2-75.2); Absolute Eosinophils 0.3 10^3/uL (0-0.7); Absolute Lymphocytes 2.4 10^3/uL (1.2-3.4); Absolute Monocytes 0.8 10^3/uL (0.1-0.6); Absolute Neutrophils 4.1 10^3/uL (1.4-6.5); Hematocrit 36.4 % (37.0-47.0); Mean Corpuscular Hgb 28.7 pg (27.0-31.0); Mean Corpuscular Volume 87.1 fL (81.0-99.0); Nucleated Red Blood Cells % 0 %; Platelet Count 236 10^3/uL (130-400); Red Blood Cell Count 4.18 10^6/uL (4.20-5.40); Red Cell Dist. Width 13.3 % (11.5-14.5); White Blood Cell Count 7.5 10^3/uL (4.8-10.8)
[2024-06-24 17:09] LABS: ALT (SGPT) 17 U/L (0-35); AST (SGOT) 25 U/L (14-36); Albumin 3.8 g/dl (3.5-5.0); Alkaline Phosphatase 57 U/L (38-126); Blood Urea Nitrogen 15 mg/dl (7-17); Calcium 9.4 mg/dl (8.4-10.2); Carbon Dioxide 32 mmol/L (22-30); Chloride 102 mmol/L (98-107); Glucose 103 mg/dl (70-99); Potassium 3.5 mmol/L (3.5-5.1); Sodium 140 mmol/L (135-145); Total Bilirubin 0.3 mg/dl (0.2-1.3); eGFR > 60.00
[2024-06-24 18:15] VITALS: BMI 24.4
[2024-06-24 18:18] VITALS: BP 159/84
--- NOTE | 2024-06-24 18:41 | ED.GENMED ---
History of Present Illness
General
Chief Complaint: Skin Problem
Source: patient
Time Seen by Provider: 06/24/24 18:31
History of Present Illness
History of Present Illness:
84yoF with a history of coronary artery disease, hypertension, hyperlipidemia, asthma, and bronchiectasis presenting for evaluation of a left lower leg wound. Patient hit her left lower leg against the car door 2 weeks ago which caused a skin tear.
The area started to become red and painful earlier this week. She was seen at urgent care 3 days ago and started on clindamycin 300mg Q8 hours. She has been taking this without improvement but she denies any worsening symptoms. She reports swelling
and pain in her ankle and calf. Pain radiates to the groin. She denies any fevers, chills, chest pain, shortness of breath. No history of diabetes.
Past History
Past History
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
diverticulitis, PNA, Kidney stones, Bronchiectasis, Migraines, Diverticulitis)
ED Past Surgical History: Gynecological (Hysterectomy), Orthopedic (Right knee replacement), Urological (Bladder suspension) and Other (Hernia repair, Bunionectomy Bilaterally)
Social History
Tobacco: Former smoker
Alcohol: None
Drug: None
Personal:
Living: with family
Employment: Retired
Family History
Family History: Other (Noncontributory)
Phy Exam
General Physical Exam
General Presentation: well appearing and no apparent distress
General age: appears stated age
General Skin: warm and dry
General Habitus: normal and elderly
General Mental: alert
ENT Exam
ENT Exam: normocephalic
Pulmonary Exam
Pulmonary Exam: no respiratory distress
Tati Coma Scale
Eye Opening: Spontaneous
Verbal Response: Oriented
Motor Response: Obeys Commands
GCS Total Score: 15
Musculoskeletal Exam
Musculoskeletal Exam: full ROM and other (Edema noted to the L ankle. No knee effusion present. ROM of L knee and ankle intact. )
Skin Exam
Skin Exam: warm/dry and other (Skin tear noted to the anterior L lower leg with scabbing. There is surrounding erythema and warmth measuring approx 7cm x 6cm. Area is tender to touch. No palpable fluctuance, drainage, crepitus, or pain out of
proportion.)
Psychiatric Exam
Psychiatric Exam: normal mood/affect
Course
Orders/Labs/Results
Orders:
Orders
06/24/24 16:40
Complete Blood Count/With Diff Urgent
Comprehensive Metabolic Panel Urgent
06/24/24 18:40
CR Leg Tibia/fibula Left 2 Vw Urgent
Comment:
Reason For Exam: Wound
Venous Doppler Lwr Ext Left [US Periph Venous LOWER Ext LT] Urgent
Comment:
Reason For Exam: L ankle/calf swelling
06/24/24 20:15
Doxycycline [Vibramycin] 100 mg PO NOW STA
Abnormal Lab Results
06/24/24
16:40
RBC 4.18 L 10^6/uL
(4.20-5.40)
Hct 36.4 L %
(37.0-47.0)
MPV 11.0 H fL
(7.4-10.4)
Absolute Monos (auto) 0.8 H 10^3/uL
(0.1-0.6)
Monocytes % 10.8 H %
(1.7-9.3)
Carbon Dioxide 32 H mmol/L
(22-30)
Glucose 103 H mg/dl
(70-99)
Total Protein 6.0 L g/dl
(6.3-8.2)
06/24/24 16:40
06/24/24 16:40
Vital Signs
Initial and Last Documented VS:
Initial Vital Signs
Temp Pulse Resp BP Pulse Ox
98.7 F 56 18 143/78 98
06/24/24 16:26 06/24/24 16:26 06/24/24 16:26 06/24/24 16:26 06/24/24 16:26
Last Documented Vital Signs
Temp Pulse Resp BP Pulse Ox
98.7 F 67 18 160/97 97
06/24/24 16:26 06/24/24 19:30 06/24/24 19:30 06/24/24 19:28 06/24/24 19:30
MDM/Problems Addressed
Differential Diagnosis Includes:
84yoF here with an infected leg wound. Sustained a skin tear 2 weeks ago and started to have redness/pain earlier this week. On clindamycin x 3 days without much improvement. No f/c. VSS. She is well appearing in no distress. There is a skin tear
with scabbing on exam. This has a focal area of surrounding erythema and warmth. No crepitus. No proximal red streaking. LLE is neurovascularly intact. Differential diagnosis includes but is not limited to: cellulitis, abscess, no evidence of NSTI
Initial ED plan: Labs obtained in triage and white count is normal. Will obtain venous duplex given edema on exam as well as tib/fib x-rays.
*Critical Care Note
Total Time (30-74mins, 75-104mins- exclusive of procedures): Not Applicable
Update Note
Update Note:
Venous duplex is negative for DVT. X-rays are negative for acute findings. She is not meeting any SIRS criteria. No indication for hospitalization at this time. Patient with multiple antibiotic allergies. Will switch abx to doxycycline. She was
referred to wound care at her urgent care visit and she was encouraged to make this appt. She was also advised to f/u with PCP. Area of cellulitis was outlined with skin marker. ED return precautions discussed. She expressed understanding and was
discharged in stable condition.
ED Attending Note
-
Portions of this chart may have been created with voice recognition software.� Occasional wrong word or��sound alike� substitutions may have occurred due to the inherent limitations of voice recognition software.
Discharge Plan
Departure
Patient Disposition: Home (Routine Discharge)
Date of Disposition: 06/24/24
Time of Disposition: 20:16
Patient with high blood pressure during this ER visit?: Yes
Discharge Problem:
Traumatic open wound of left lower leg with infection
Instructions: Wound Infection
Prescriptions:
New
doxycycline hyclate 100 mg capsule
100 mg PO BID Qty: 13 0RF
No Action
albuterol sulfate 1 PUFF HFA aerosol inhaler
1 puff inhalation R Q4HPRN PRN (Reason: sob)
multivitamin with folic acid [Tab-A-Ailyn] 1 TABLET tablet
1 tab PO QPM
ascorbic acid (vitamin C) [Vitamin C] 500 MG tablet
1,000 mg PO QPM
budesonide 0.5 MG/2 ML suspension for nebulization
0.5 mg inhalation R BID
fluticasone propionate 1 SPRAY spray,suspension
2 spray intranasal DAILY PRN (Reason: congestion)
escitalopram oxalate 5 MG tablet
5 mg PO DAILY
atorvastatin 20 mg tablet
20 mg PO DAILY@1100
ipratropium-albuterol 0.5 mg-3 mg(2.5 mg base)/3 mL solution for nebulization
3 ml INHALATION R BID
omeprazole 40 mg capsule,delayed release(DR/EC)
40 mg PO DAILY
aspirin 81 mg Tablet,Delayed Release (Dr/Ec)
81 mg PO DAILY@1100
calcium carbonate [Tums] 200 mg calcium (500 mg) Tablet,Chewable
200 mg PO BID PRN (Reason: heartburn/indigestion)
carboxymethylcellulose sodium 1 % Drops, Liquid Gel
2 drp BOTH EYES HS
guaifenesin [Mucinex] 600 mg Tablet Extended Release 12hr
600 mg PO Q12H PRN (Reason: congestion)
Qvar RediHaler 80 mcg/actuation HFA aerosol breath activated
2 inh INHALATION R BID
carvedilol 12.5 mg Tablet
12.5 mg PO BID Qty: 60 5RF
lisinopril 5 mg Tablet
5 mg PO DAILY Qty: 30 5RF
furosemide 20 mg Tablet
20 mg PO DAILY Qty: 30 5RF
amlodipine 2.5 mg Tablet
2.5 mg PO 1XD
lidocaine 4 % Adhesive Patch,Medicated
1 patch topical DAILY Qty: 30 0RF
acetaminophen [Tylenol Extra Strength] 500 mg Tablet
1,000 mg PO TID Qty: 0 0RF
gabapentin 100 mg Capsule
200 mg PO HS Qty: 60 0RF
docusate sodium 100 mg Capsule
100 mg PO BID Qty: 0 0RF
Referrals:
[facility] [[facility] -
Activity Restrictions/Additional Instructions:
Switch antibiotics to doxycycline. Monitor the wound daily.
Please call tomorrow to schedule a follow-up appointment with your family doctor and the wound center.
Return to the ER with any worsening symptoms, spreading redness, fevers, chills.
Interventions
Interventions:
*Risk Screen - Suicide Last Done: 06/24/24 16:27
*General Assessment Last Done: 06/24/24 16:27
*Neglect/Abuse Screening Last Done: 06/24/24 16:27
ED- Fall Risk Assessment Last Done: 06/24/24 18:15
*ED COVID-19 Vaccine History Last Done: 06/24/24 16:27
*Nursing Disposition Last Done: 06/24/24 20:29
ED-Skin Assessment Last Done: 06/24/24 18:15
Discharge Date and Time
Discharge Date/Time: 06/24/24 20:30
Print Language: KOREAN
[2024-06-24 19:28] VITALS: BP 160/97
[2024-06-24] MEDS: VIBRAMYCIN 100 MG PO (20:25)
== END 2024-06-24 20:30 | disposition home or self-care (01) ==
LOC: EMR 16:22
PROVIDERS: EMERGENCY PHYSICIAN Emergency Medicine; FAMILY PHYSICIAN Physician Assistant
DX: S81.802A Unspecified open wound, left lower leg, initial encounter (principal); L03.90 Cellulitis, unspecified; I10 Essential (primary) hypertension; W22.09XA Striking against other stationary object, initial encounter; I25.10 Atherosclerotic heart disease of native coronary artery without angina pectoris; E78.00 Pure hypercholesterolemia, unspecified; Z87.891 Personal history of nicotine dependence; J44.89 Other specified chronic obstructive pulmonary disease
CPT/HCPCS: 99285; 73590; 80053; 85025; 93971

== ENCOUNTER → 2024-07-19 13:10 | Outpatient (REF) | payer MEDICARE, OTHER, SELFPAY ==
[2024-07-19 15:46] LABS: C-Reactive Protein < 5.00 mg/L (0.0-10.00)
[2024-07-19 15:49] LABS: Calcium 9.6 mg/dl (8.4-10.2)
[2024-07-19 15:54] LABS: IgA 67 mg/dl (70-400)
[2024-07-19 16:04] LABS: Vitamin D, 25-OH*** 47.3 ng/mL (30-80)
[2024-07-19 16:17] LABS: Cortisol, Random 4.6 ug/dl; TSH 2.26 uIU/ml (0.47-4.68)
[2024-07-20 10:59] LABS: Intact PTH 63.6 pg/ml (13.6-85.8)
[2024-07-21 11:28] LABS: tTG IgA Antibody 3.4 EU/ml (0-19); tTG IgG Antibody 5.1 EU/ml (0-19)
[2024-07-21 16:54] LABS: CTx 454 pg/mL
== END ==
LOC: RAD 13:10
PROVIDERS: ATTENDING PHYSICIAN Internal Medicine Rheumatology; FAMILY PHYSICIAN Physician Assistant
DX: E55.9 Vitamin D deficiency, unspecified (principal); K21.9 Gastro-esophageal reflux disease without esophagitis; M79.7 Fibromyalgia; M81.0 Age-related osteoporosis without current pathological fracture; M19.072 Primary osteoarthritis, left ankle and foot
CPT/HCPCS: 36415; 73600; 82306; 82523; 82533; 82784; 83516; 83970; 84155; 84165; 84443; 86140; 86231

== ENCOUNTER → 2024-07-27 10:37 | Outpatient (REF) | payer MEDICARE, OTHER, SELFPAY ==
[2024-07-27 12:34] LABS: Urine Calcium 6.4 mg/dl
[2024-07-27 12:36] LABS: 24 Hour Urine Calcium 105.6 mg/day; 24 Hour Urine Total Volume 1650 ml
== END ==
LOC: REG 10:37
PROVIDERS: ATTENDING PHYSICIAN Internal Medicine Rheumatology; FAMILY PHYSICIAN Physician Assistant
DX: E55.9 Vitamin D deficiency, unspecified (principal); K21.9 Gastro-esophageal reflux disease without esophagitis; M79.7 Fibromyalgia; M81.0 Age-related osteoporosis without current pathological fracture
CPT/HCPCS: 81050; 82340

== ENCOUNTER 2024-08-16 16:42 | Emergency (ER) | payer MEDICARE, OTHER, SELFPAY ==
[2024-08-16 17:01] VITALS: BP 106/64
[2024-08-16] MEDS: TYLENOL 650 MG PO (18:50)
--- NOTE | 2024-08-16 19:10 | ED.GENMED ---
History of Present Illness
General
Chief Complaint: Fall
Source: patient
Exam Limitations: none
Time Seen by Provider: 08/16/24 17:20
Nursing documentation reviewed up to this point in time: agreed with
History of Present Illness
History of Present Illness:
pt is a 84 y/o F with ho mini stroke, previous DVT not on AC,
arthritis
mechanical fall getting out of the car today with her niece after having lunch. she tripped on her cane and hit her head on the ground and her glasses cut her L forehead
no LOC
having soreness in her head, neck, R shoulder and b/l knees, mild soreness in nose
allergic to tetanus vaccine
no vomiting, confusion ,ewakness, numbness, ches tpain, sob, hip pain
able to walk
no thinners
Past History
Past History
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
diverticulitis, PNA, Kidney stones, Bronchiectasis, Migraines, Diverticulitis)
ED Past Surgical History: Gynecological (Hysterectomy), Orthopedic (Right knee replacement), Urological (Bladder suspension) and Other (Hernia repair, Bunionectomy Bilaterally)
Social History
Tobacco: Former smoker
Alcohol: None
Drug: None
Personal:
Living: with family
Employment: Retired
Family History
Family History: Other (Noncontributory)
Review of Systems
Review of Systems
Allergies reviewed?: Yes
All Other Systems: Not applicable
Phy Exam
Physical Exam
Physical Exam:
GENERAL: Alert , in no apparent distress
HEAD: L forhead laceration linear approx 2 cm
with STS localized around the wound above the superior orbit
NECK: no midline tenderness, active ROM intact, no paraspinal muscle tenderness;
EYE: pupils equal and reactive, EOMs intact.
ENT: o/p clr, mmm. no hemotympanum
CARDIAC: Regular rate and rhythm, no edema
LUNGS: Clear breath sounds bilaterally, no acute respiratory distress, no wheezes/rales/rhonchi
ABDOMEN: Soft, without focal tenderness, no r/g, no cvat
NEUROLOGICAL: Alert and oriented, no focal neuro deficits, CN intact, 5/5 strength, sensation intact
SKIN: Warm and dry, laceration forehead
MUSCULOSKELETAL: b/l knee contusions/bruises mild sts R patella localiezed ecchymosis
right shoulder slightly tender prox humerus; full ROM
no bruising
PSYCH: Normal and appropriate interaction.
Course
Orders/Labs/Results
Orders:
Orders
08/16/24 17:16
CT Cervical Spine W/o Iv Contr Urgent
Comment:
Reason For Exam: Fall: Head strike
CT Head W/o Iv Contrast Urgent
Comment:
Reason For Exam: Fall: Head strike
08/16/24 17:19
CT Facial Bones W/o Iv Contras Urgent
Comment:
Reason For Exam: Facial injury: Fall with Head strike
08/16/24 18:36
Acetaminophen [Tylenol] 650 mg PO NOW STA
Shoulder, Right, Trauma [CR Shoulder, Trauma - Right] Urgent
Comment:
Reason For Exam: right shoulder pain after fall
Vital Signs
Initial and Last Documented VS:
Initial Vital Signs
Temp Pulse Resp BP Pulse Ox
37.0 C 62 18 106/64 97
08/16/24 17:01 08/16/24 17:01 08/16/24 17:01 08/16/24 17:01 08/16/24 17:01
Last Documented Vital Signs
Temp Pulse Resp BP Pulse Ox
37.0 C 62 18 150/81 98
08/16/24 21:24 12/23/24 21:24 08/16/24 21:24 08/16/24 21:24 08/16/24 21:24
Procedures
Laceration Closure
Left Forehead:
Status of Wound: clean
Size of Wound in cm: 2
Description of Wound Edges: sharp and flap-well vascularized
Preparation: cleaned with saline
Revision/Debridement: routine- no revision
Wound exploration: explored to base- no FB
Type of Closure: single layer closure and Dermabond-skin glue
MDM/Problems Addressed
Differential Diagnosis Includes:
facial fracture, head injury, facial laceration, shoulder sprain
MDM/Problems Addressed:
84 y/o F
fall mechanical forward
face strike
no loc
no thinners
neuro nitact
facial laceration forehead
which was closed well with glue/sterristrip
neck no mdilin tendnress
R shoulder pain
moving both hips
ct head/neck/facial bones no acute traumatic findings
xray R shoulde r independently reviewed neg
mil OA
d/c home
*Critical Care Note
Total Time (30-74mins, 75-104mins- exclusive of procedures): Not Applicable
ED Attending Note
-
Portions of this chart may have been created with voice recognition software.� Occasional wrong word or��sound alike� substitutions may have occurred due to the inherent limitations of voice recognition software.
Discharge Plan
Departure
Patient Disposition: Home (Routine Discharge)
Date of Disposition: 08/16/24
Time of Disposition: 21:09
Patient with high blood pressure during this ER visit?: No
Condition: Fair
Covid-19: Not Applicable
Discharge Problem:
Laceration of face, Head injury, Sprain of right shoulder joint
Instructions: Laceration Repair With Glue (DC), Head Injury in Adults (DC)
Prescriptions:
No Action
albuterol sulfate 1 PUFF HFA aerosol inhaler
1 puff inhalation R Q4HPRN PRN (Reason: sob)
multivitamin with folic acid [Tab-A-Ailyn] 1 TABLET tablet
1 tab PO QPM
ascorbic acid (vitamin C) [Vitamin C] 500 MG tablet
1,000 mg PO QPM
budesonide 0.5 MG/2 ML suspension for nebulization
0.5 mg inhalation R BID
fluticasone propionate 1 SPRAY spray,suspension
2 spray intranasal DAILY PRN (Reason: congestion)
escitalopram oxalate 5 MG tablet
5 mg PO DAILY
atorvastatin 20 mg tablet
20 mg PO DAILY@1100
ipratropium-albuterol 0.5 mg-3 mg(2.5 mg base)/3 mL solution for nebulization
3 ml INHALATION R BID
omeprazole 40 mg capsule,delayed release(DR/EC)
40 mg PO DAILY
aspirin 81 mg Tablet,Delayed Release (Dr/Ec)
81 mg PO DAILY@1100
calcium carbonate [Tums] 200 mg calcium (500 mg) Tablet,Chewable
200 mg PO BID PRN (Reason: heartburn/indigestion)
carboxymethylcellulose sodium 1 % Drops, Liquid Gel
2 drp BOTH EYES HS
guaifenesin [Mucinex] 600 mg Tablet Extended Release 12hr
600 mg PO Q12H PRN (Reason: congestion)
Qvar RediHaler 80 mcg/actuation HFA aerosol breath activated
2 inh INHALATION R BID
carvedilol 12.5 mg Tablet
12.5 mg PO BID Qty: 60 5RF
lisinopril 5 mg Tablet
5 mg PO DAILY Qty: 30 5RF
furosemide 20 mg Tablet
20 mg PO DAILY Qty: 30 5RF
amlodipine 2.5 mg Tablet
2.5 mg PO 1XD
lidocaine 4 % Adhesive Patch,Medicated
1 patch topical DAILY Qty: 30 0RF
acetaminophen [Tylenol Extra Strength] 500 mg Tablet
1,000 mg PO TID Qty: 0 0RF
gabapentin 100 mg Capsule
200 mg PO HS Qty: 60 0RF
docusate sodium 100 mg Capsule
100 mg PO BID Qty: 0 0RF
doxycycline hyclate 100 mg capsule
100 mg PO BID Qty: 13 0RF
Referrals:
Allyssa Gusman PA-C [Family Provider] - Follow up in 2-3 days
Activity Restrictions/Additional Instructions:
Keep the wound clean and dry, do this for 48 hours and then you can get it wet in the shower as usual. The Steri-Strips and glue will peel up and fall off over time. Take Tylenol as needed for pain. Your CAT scan shows no signs of trauma to your
head, facial bones and neck. You do have some arthritis in your right shoulder but no fracture.
Return for any concerns
Interventions
Interventions:
*Risk Screen - Suicide Last Done: 08/16/24 17:01
*General Assessment Last Done: 08/16/24 17:01
*Neglect/Abuse Screening Last Done: 08/16/24 17:01
ED- Fall Risk Assessment Last Done: 08/16/24 21:27
*ED COVID-19 Vaccine History Last Done: 08/16/24 21:24
*Nursing Disposition Last Done: 08/16/24 21:27
ED-Musculoskeletal Assessment Last Done: 08/16/24 17:15
ED- Neurological Assessment Last Done: 08/16/24 17:15
ED-Skin Assessment Last Done: 08/16/24 17:15
Discharge Date and Time
Discharge Date/Time: 08/16/24 21:27
Print Language: KINYARWANDA
[2024-08-16 21:24] VITALS: BP 150/81
== END 2024-08-16 21:27 | disposition home or self-care (01) ==
LOC: EMR 16:42
PROVIDERS: EMERGENCY PHYSICIAN Emergency Medicine; FAMILY PHYSICIAN Physician Assistant
DX: S01.81XA Laceration without foreign body of other part of head, initial encounter (principal); S43.401A Unspecified sprain of right shoulder joint, initial encounter; W18.09XA Striking against other object with subsequent fall, initial encounter; E78.00 Pure hypercholesterolemia, unspecified; I10 Essential (primary) hypertension; K21.9 Gastro-esophageal reflux disease without esophagitis; J44.89 Other specified chronic obstructive pulmonary disease; Z86.718 Personal history of other venous thrombosis and embolism; Z86.73 Personal history of transient ischemic attack (TIA), and cerebral infarction without residual deficits; Z87.891 Personal history of nicotine dependence
CPT/HCPCS: 12011; 99284; 70450; 70486; 72125; 73030

== ENCOUNTER → 2024-12-03 10:06 | Outpatient (REF) | payer MEDICARE, OTHER, SELFPAY ==
[2024-12-03 11:52] LABS: Urine Albumin 2+ (Neg - Trace); Urine Bilirubin Negative (Negative); Urine Character Clear (Clear); Urine Color Yellow; Urine Glucose Negative (Negative); Urine Ketone Negative (Negative); Urine Leukocyte 2+ (Negative); Urine Nitrite Negative (Negative); Urine Occult Blood Negative (Negative); Urine Urobilinogen Negative (Neg - 1+)
[2024-12-03 11:52] LABS: % Basophils 0.7 % (0-2); % Eosinophils 4.3 % (0-6); % Immature Granulocytes 0.3 % (0-0.5); % Lymphocytes 31.3 % (20.5-51.1); % Monocytes 11.5 % (1.7-9.3); % Neutrophils 51.9 % (42.2-75.2); Absolute Basophils 0.1 10^3/uL (0-0.2); Absolute Eosinophils 0.3 10^3/uL (0-0.7); Absolute Lymphocytes 2.3 10^3/uL (1.2-3.4); Absolute Monocytes 0.8 10^3/uL (0.1-0.6); Absolute Neutrophils 3.7 10^3/uL (1.4-6.5); Hematocrit 40.4 % (37.0-47.0); Hemoglobin 13.2 g/dL (12.0-16.0); Mean Corp Hgb Conc. 32.7 g/dL (33.0-37.0); Mean Corpuscular Hgb 28.9 pg (27.0-31.0); Mean Corpuscular Volume 88.6 fL (81.0-99.0); Mean Platelet Volume 11.2 fL (7.4-10.4); Nucleated Red Blood Cells % 0 %; Platelet Count 194 10^3/uL (130-400); Red Blood Cell Count 4.56 10^6/uL (4.20-5.40); Red Cell Dist. Width 13.6 % (11.5-14.5); White Blood Cell Count 7.2 10^3/uL (4.8-10.8)
[2024-12-03 11:59] LABS: Urine Mucus Few; Urine Red Blood Cell 0-2 /HPF (0-2)
[2024-12-03 12:00] LABS: Urine Bacteria Few (Negative)
[2024-12-03 12:12] LABS: ALT (SGPT) 19 U/L (0-35); AST (SGOT) 25 U/L (14-36); Albumin 4.2 g/dl (3.5-5.0); Alkaline Phosphatase 70 U/L (38-126); Blood Urea Nitrogen 17 mg/dl (7-17); Calcium 9.6 mg/dl (8.4-10.2); Carbon Dioxide 31 mmol/L (22-30); Chloride 103 mmol/L (98-107); Glucose 85 mg/dl (70-99); HDL Cholesterol 84 mg/dl; Sodium 142 mmol/L (135-145); Total Bilirubin 0.8 mg/dl (0.2-1.3); Total Protein 6.3 g/dl (6.3-8.2); Triglyceride 61 mg/dl (10-149); Very Low Density Lipoprotein 12 mg/dl (0-30); eGFR > 60.00
[2024-12-03 12:20] LABS: LDL Cholesterol, Calculated 48 mg/dl; Total Cholesterol 144 mg/dl (50-199)
== END ==
LOC: REG 10:06
PROVIDERS: ATTENDING PHYSICIAN Physician Assistant
DX: Z00.00 Encounter for general adult medical examination without abnormal findings (principal); I10 Essential (primary) hypertension; K21.9 Gastro-esophageal reflux disease without esophagitis; E78.5 Hyperlipidemia, unspecified; I25.10 Atherosclerotic heart disease of native coronary artery without angina pectoris; R06.09 Other forms of dyspnea; R10.30 Lower abdominal pain, unspecified
CPT/HCPCS: 36415; 80053; 80061; 81003; 81015; 85025; 87086

== ENCOUNTER → 2024-12-08 11:51 | Outpatient (REF) | payer MEDICARE, OTHER, SELFPAY | LOC: WDC 11:51 | PROVIDERS: ATTENDING PHYSICIAN Physician Assistant | DX: Z12.31 Encounter for screening mammogram for malignant neoplasm of breast (principal) | CPT/HCPCS: 77063; 77067 ==

== ENCOUNTER → 2024-12-09 12:00 | Outpatient (REF) | payer MEDICARE, OTHER, SELFPAY | LOC: PAVMRI 12:00 | PROVIDERS: ATTENDING PHYSICIAN Internal Medicine Gastroenterology; FAMILY PHYSICIAN Physician Assistant | DX: R10.13 Epigastric pain (principal); K86.2 Cyst of pancreas | CPT/HCPCS: 74183; A9575 ==

== ENCOUNTER 2024-12-13 18:57 | Observation (INO) | payer MEDICARE, OTHER, SELFPAY ==
[2024-12-13] VITALS (48 sets, daily range): BP systolic 49–137; BP diastolic 33–89; BMI 24.9
[2024-12-13 13:00] LABS: % Basophils 0.5 % (0-2); % Eosinophils 4.9 % (0-6); % Immature Granulocytes 0.3 % (0-0.5); % Lymphocytes 24.2 % (20.5-51.1); % Monocytes 9.4 % (1.7-9.3); % Neutrophils 60.7 % (42.2-75.2); Absolute Eosinophils 0.4 10^3/uL (0-0.7); Absolute Lymphocytes 1.8 10^3/uL (1.2-3.4); Absolute Monocytes 0.7 10^3/uL (0.1-0.6); Absolute Neutrophils 4.6 10^3/uL (1.4-6.5); Hematocrit 35.6 % (37.0-47.0); Hemoglobin 11.6 g/dL (12.0-16.0); Mean Corp Hgb Conc. 32.6 g/dL (33.0-37.0); Mean Corpuscular Hgb 28.9 pg (27.0-31.0); Mean Corpuscular Volume 88.6 fL (81.0-99.0); Mean Platelet Volume 11.2 fL (7.4-10.4); Nucleated Red Blood Cells % 0 %; Platelet Count 180 10^3/uL (130-400); Red Blood Cell Count 4.02 10^6/uL (4.20-5.40); Red Cell Dist. Width 13.5 % (11.5-14.5); White Blood Cell Count 7.5 10^3/uL (4.8-10.8)
--- NOTE | 2024-12-13 13:00 | ED.GENMED ---
History of Present Illness
General
Chief Complaint: Chest Pain
Source: patient
Time Seen by Provider: 12/13/24 12:39
History of Present Illness
History of Present Illness:
4-year-old female presents to the emergency room complaining of chest pain. [place] was having chest pain. She noticed when she woke this morning. She describes it as a pain in her bilateral jaw/neck and a
heaviness in her chest. She rates it a 9 out of 10 at its worst. She called 911. She was given baby aspirin and a sublingual nitro. The nitro seem to improve the pain and she rates it a 5 out of 10 now. Patient denies associated shortness of
breath though she did feel nauseous. She does have a history of coronary artery disease. She had a cath in 2022 which showed noncritical stenosis and the decision was made to continue medical management.
Past History
Past History
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
diverticulitis, PNA, Kidney stones, Bronchiectasis, Migraines, Diverticulitis)
ED Past Surgical History: Gynecological (Hysterectomy), Orthopedic (Right knee replacement), Urological (Bladder suspension) and Other (Hernia repair, Bunionectomy Bilaterally)
Social History
Tobacco: Former smoker
Alcohol: None
Drug: None
Personal:
Living: with family
Employment: Retired
Family History
Family History: Other (Noncontributory)
Phy Exam
Physical Exam
Physical Exam:
General: Awake, Alert, Oriented X3. Thin, appears stated age
Vitals: unremarkable
Head: Atraumatic
Eyes: Pupils equal, EOMI
Throat: Airway intact, no exudates
Neck: Trachea midline
Lungs: Clear and equal b/l
Heart: Regular rate, no murmurs
Abd: Soft, Nontender, No pulsatile mass
Neuro: Nonfocal
Skin: Warm, dry, no rash
Extremities: pulses equal b/l, no edema
Scores
Heart Score for Chest Pain Patients
STEMI patient?: No
History: Highly Suspicious
ECG: Significant ST-Depression
Age: >/= 65 years
Risk Factors: >/= 3 Risk Factors or History of CAD
Troponin: </= Normal Limit
Heart Score for Chest Pain Patients: 8
Heart Score Risk: 72.7 % MACE over next 6 weeks
Course
Orders/Labs/Results
Orders:
Orders
12/13/24 12:26
Electrocardiogram (*1) Urgent
Reason for Study: Chest Pain
CXR2 [CR Chest - 2 Views ] Urgent
Comment:
Reason For Exam: chest pain with SOB
12/13/24 12:27
EKG- Treatment ONCE
12/13/24 12:33
Complete Blood Count/With Diff Urgent
Comprehensive Metabolic Panel Urgent
Troponin I Urgent
12/13/24 13:00
Nitroglycerin Sublingual [Nitrostat (Sublingual)] 0.4 mg SL NOW STA
12/13/24 14:03
Nitroglycerin 100 mg/250 ml [Nitroglycerin Premix] 100 mg in 250 ml IV NOW
Initial dose in mcg/min, then titrate:: 10
Titrate to keep:: SBP < 160 mmHg
Titrate by mcg/min:: 5 mcg/min, may increase by 10 mcg/min if dose > 20 mcg/min
Frequency of titrations (minutes):: every 3-5 minutes
Maximum dose in mcg/min:: 200
Begin to taper infusion when:: Remained at goal for 2hrs
Taper by mcg/min:: 5 mcg/min
Frequency of taper (minutes) if patient maintains goal:: 30
Taper to off?: Yes
If infusion off & no longer maintaining goal:: Contact Provider
12/13/24 14:04
Electrocardiogram (*1) Urgent
Reason for Study: Chest Pain
EKG- Treatment ONCE
Nitroglycerin Sublingual [Nitrostat (Sublingual)] 0.4 mg SL NOW STA
12/13/24 14:39
0.9% Sodium Chloride 500 ml [Nss] 500 ml IV BOLUS
12/13/24 15:53
NT-proBNP Urgent
Comment: ADD ON
Troponin I Urgent
12/13/24 15:55
Echo 2D MMode Color/Doppler Urgent
Reason for Study: chest pain
12/13/24 16:24
Add On- LAB Urgent
Tests Added?: pro-BNP
12/13/24 16:33
CT Chest Angio W/wo Iv Contras Urgent
Comment:
Reason For Exam: chest pain radiating to neck
12/13/24 17:36
Admit/Transfer Patient As Directed
Co-Sign Provider:
Level of Care: Observation services
Assign to:: Medical/Surgical
Physician / Group: Brandon Thomson
Diagnosis: chest pain
PRN Pain Medication Management As Directed
May give lesser potent ordered pain med per pt: Yes
preference::
Protocol:: Medication orders for pain may be administered in a
manner that supports deferring to patient preference
when the pt is:
- Requesting an ordered lesser potent pain medication.
Least to most potent pain medications are defined
as: acetaminophen < NSAID < tramadol < opioids
(morphine, oxycodone, hydromorphone).
- Requesting a lesser dose of the same medication IF
ORDERED.
- Requesting a less intrusive route of administration
if both routes are prescribed by the provider (PO <
IV).
12/13/24 17:38
Code Status As Directed
Resuscitation Status: Full Code
Abnormal Lab Results
12/13/24
12:33
RBC 4.02 L 10^6/uL
(4.20-5.40)
Hgb 11.6 L g/dL
(12.0-16.0)
Hct 35.6 L %
(37.0-47.0)
MCHC 32.6 L g/dL
(33.0-37.0)
MPV 11.2 H fL
(7.4-10.4)
Absolute Monos (auto) 0.7 H 10^3/uL
(0.1-0.6)
Monocytes % 9.4 H %
(1.7-9.3)
BUN 20 H mg/dl
(7-17)
Glucose 220 H mg/dl
(70-99)
Total Protein 5.2 L g/dl
(6.3-8.2)
Albumin 3.2 L g/dl
(3.5-5.0)
12/13/24 12:33
12/13/24 12:33
Vital Signs
Initial and Last Documented VS:
Initial Vital Signs
BP
104/81
12/13/24 12:25
Last Documented Vital Signs
Temp Pulse Resp BP Pulse Ox
97.6 F 73 28 136/89 94
12/13/24 12:37 12/13/24 17:15 12/13/24 17:15 12/13/24 17:00 12/13/24 17:15
MDM/Problems Addressed
Differential Diagnosis Includes:
Acute coronary syndrome, NSTEMI, GERD, dissection
MDM/Problems Addressed:
Patient presents with chest pain that sound most consistent with angina/acute coronary syndrome. She had some improvement in nitro in the prehospital setting and nitro was continued here. Ultimately a nitro drip was ordered. First troponin was
negative and cardiology consultation was obtained. Cardiology performed a bedside echocardiogram and a second troponin was ordered. Troponin was negative x 2. Echo showed some change in size of the ascending aorta compared to previous echo. This
raises the question of an aortic dissection or other acute aortic syndrome. CT angiogram was ordered which confirmed the presence of a type a dissection. Dr. Mishra who was on-call for CT surgery was contacted. He came to the bedside and evaluated
the patient immediately. By the time he had arrived the patient had quickly become more symptomatic with hypotension, mottling and decreased mental status. She expressed to Dr. Mishra she would not want major surgery. Her operative risk under the
best of circumstances is quite high now given her state of extremis surgery would likely be futile. Additionally CPR, intubation would be futile. Dr. Mishra discussed this with the patient's son and daughter who agreed and the patient will be made
comfort measures. I updated the hospitalist service about CT findings, Dr. Mishra's evaluation and changed to comfort measures.
*Radiology
Radiology exam reviewed: radiology read reviewed
*Pulse Oximetry
Patient hypoxic: no
*EKG
Interpreted by ED Provider?: Yes
Heart Rate: 53
Rate: bradycardiac
Rhythm: sinus
QRS Pattern: right bundle branch block
Ischemia: T-wave inversion (Anterior laterally)
*Academic Advising Director Interpretation
Rate: bradycardiac
Interpretation: abnormal
Rhythm: sinus
*Critical Care Note
Total Time (30-74mins, 75-104mins- exclusive of procedures): 65 min
comment:
Critical care statement: A total of 65 minutes of critical care time was provided for this patient. This includes management of unstable vital signs, evaluation of the patient at bedside, reviewing the patient's pertinent medical records, discussion
with consultants, review of old EKGs and review of pertinent medical records. This time with separate from time utilized to perform the aforementioned documented procedures
Update Note
Update Note:
1900...CTA completed, no report available but looks for suspicious for type a dissection. call placed to CT surgery Dr. Mishra. CT team will come eval. Simultaneously pt c/o nausea and increased pain. Borderline bp. Nitro held for now. HR in the
70's to 80's. Given bp will hold off on betablocker for the moment but will start if bp improves.
1912, CT surgery in room
ED Attending Note
-
Portions of this chart may have been created with voice recognition software.� Occasional wrong word or��sound alike� substitutions may have occurred due to the inherent limitations of voice recognition software.
Discharge Plan
Departure
Patient Disposition: Admit
Date of Disposition: 12/13/24
Time of Disposition: 16:29
Admit to: IVU
Presentation/result/management discussed w/ accepting MD/DO: Hospitalist
Condition: Serious
Discharge Problem:
Chest pain
Interventions
Interventions:
*Risk Screen - Suicide Last Done: 12/13/24 12:37
*General Assessment Last Done: 12/13/24 12:37
*Neglect/Abuse Screening Last Done: 12/13/24 12:37
*ED- Fall Risk Assessment Last Done: 12/13/24 12:37
*ED COVID-19 Vaccine History Last Done: 12/13/24 12:37
ED- Cardiac Assessment Last Done: 12/13/24 12:37
[2024-12-13 13:06] LABS: ALT (SGPT) 17 U/L (0-35); AST (SGOT) 24 U/L (14-36); Albumin 3.2 g/dl (3.5-5.0); Alkaline Phosphatase 64 U/L (38-126); Blood Urea Nitrogen 20 mg/dl (7-17); Carbon Dioxide 30 mmol/L (22-30); Chloride 104 mmol/L (98-107); Estimated Creatinine Clearance 42 ml/min; Glucose 220 mg/dl (70-99); Potassium 3.9 mmol/L (3.5-5.1); Sodium 139 mmol/L (135-145); Total Bilirubin 0.7 mg/dl (0.2-1.3); Total Protein 5.2 g/dl (6.3-8.2); eGFR > 60.00
[2024-12-13] MEDS: NITROSTAT (SUBLINGUAL) 0.4 MG SL ×2 (13:06→14:06)
[2024-12-13 13:12] LABS: Troponin I < 0.012 ng/ml
[2024-12-13] MEDS: NITROGLYCERIN PREMIX 250 IV (14:06)
[2024-12-13] MEDS: NSS 500 IV ×2 (14:51→19:07)
--- NOTE | 2024-12-13 14:51 | EDRN ---
cardiology currently at the pts bedside
--- NOTE | 2024-12-13 15:22 | CON.CAR ---
Addendum entered and electronically signed by Lawrence Mcgee MD 12/13/24 16:47:
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
bundle branch block mild-moderate mitral regurgitation who comes in now with chest discomfort better with nitroglycerin, pain across chest radiating through to back, more severe than previous
PMH: Heart failure with mildly reduced EF, nonischemic cardiomyopathy, nonobstructive CAD with 50% right PDA stenosis, circumflex with takeoff from the proximal RCA, hypertension, PVCs, paroxysmal atrial tachycardia, history of Angina, COPD, stroke,
DVT following total knee arthroplasty 2021 cardiomyopathy with mildly reduced EF
Outpatient meds: Per summary screen, amlodipine 2.5 mg daily, aspirin 81 mg a day, atorvastatin 20 mg daily, carvedilol 12.5 twice daily escitalopram, furosemide 20 mg a day, lisinopril 5 mg a day, omeprazole
Allergies: Numerous, on carvedilol but beta-ana laura listed as allergy, multiple antibiotics, simvastatin
105/84, pulse 53, respiratory 16, temp 36,, some distress, head neck exam unremarkable, lungs are clear, no obvious murmurs with limited exam JVD okay, abdomen benign extremities without clubbing cyanosis or edema
Chest x-ray: Cardiomegaly minimal blunting
ECG:Sinus bradycardia, right bundle branch block, left anterior fascicular block, LVH
Preliminary echo: EF about the same, mild to moderate aortic regurgitation, aorta is 4.6 cm
LDL 48 as of November, white count 7.5, hemoglobin 11.6, platelets 180, BUN and creatinine 20 and 0.7, glucose 220, initial troponin undetectable, second troponin pending
Impression:
Anginal chest pain with undetectable troponin and no EKG changes
Nonischemic cardiomyopathy with mildly reduced EF
Heart failure with mildly reduced EF
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
Hypercholesterolemia
Nonobstructive CAD by cardiac catheterization 2022
Hypertension
PVCs
History of DVT
Total knee arthroplasty
Plan:
Her symptoms sound like an acute coronary syndrome, but she has an undetectable troponin x 2 and her EKG does not show acute changes. She is not terribly hypertensive.
Her preliminary echo reveals that EF is about the same, but her aorta is considerably enlarged.
Given that her troponin is undetectable x 2 and her EKG does not have acute changes, we will perform a CTA of the aorta to ascertain that she does not have an acute aortic syndrome.
In the meantime, would continue IV nitro beta-blockers, consider uptitration of amlodipine.
Further management to be determined based upon her clinical course and follow-up study results.
Original Note:
Consultation
Consultation Request
Date/Time Consultation Requested: 12/13/2024, 1430
Date/Time Consultation Performed: 12/13/2024, 1500
Requesting Provider: Dr Fraire
Performing Provider: EMMANUEL Couch for Dr Mcgee
Reason for Consultation: chest pain
Medical History
-
Chief Complaint: chest pain, jaw pain
History of Present Illness:
84-year-old female with heart failure mildly reduced EF, nonobstructive coronary artery disease, hypertension, nonischemic cardiomyopathy, PVCs, hyperlipidemia, paroxysmal atrial tachycardia, presents to ED today after waking up this morning with
9/10 pain in the front of her jaw, radiating to her right neck and right shoulder and into her throat and chest. Called 911 and received sublingual nitroglycerin and ASA 81 mg with improvement in pain. In ED had recurrent pain and has received
additional sublingual nitro with improvement in pain but then recurrence. Patient with history of cardiac cath in 2022 showing anomalous takeoff of the left circumflex from the proximal RCA from the right coronary cusp and 50% stenosis in the mid
right PDA. Minimal luminal irregularities in other vessels. Last echo was 04/2023 with EF 50%.
ED workup:
EKG: Sinus bradycardia, left anterior fascicular block, right bundle branch block
Troponin less than 0.012, second troponin pending
Chest x-ray with mild bibasilar scarring, no focal airspace disease or pleural effusions, mild degenerative changes within both shoulders
Had outpt abdominal MRI 12/09/2024 to follow-up on epigastric pain, pancreatic cysts, showed no growth of cyst, no other significant findings
PMH:
Nonischemic cardiomyopathy
Heart failure previously with midrange EF, now with improved EF on most recent echo 04/2023
Nonobstructive CAD, 50% mid right PDA stenosis, known anomalous takeoff of the left circumflex of the proximal RCA from the right coronary cusp, per cath 12/04/2022
HTN
Frequent PVCs
Paroxysmal atrial tachycardia
h/o chest pain
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
COPD
h/o CVA
h/o DVT after TKA 02/2022
Multiple medication allergies and intolerances
Past Medical History
Past Medical History: Other (in HPI)
Past Surgical History: Gynecological (ANGÉLICA-BSO), Orthopedic, Tonsilectomy and Urological (bladder suspension)
Social History
Tobacco: Former Smoker
Alcohol: None
Drug: None
Personal:
Living: With Family
Family History
Family History: CAD and Cancer
Allergies / Home Medications
Allergy/AdvReac Type Severity Reaction Status Date / Time
adhesive [Adhesive] Allergy Rash Verified 08/16/24 16:59
adhesive tape Allergy Unknown Verified 08/16/24 16:59
amoxicillin [From Augmentin] Allergy Nausea / Verified 08/16/24 16:59
Vomiting
barley Allergy abdominal Verified 08/16/24 16:59
pain-celiac
Beta-Blockers Allergy Swelling Verified 08/16/24 16:59
(Beta-Adrenergic Bloc
cefaclor [From Ceclor] Allergy rash and Verified 08/16/24 16:59
nausea
ceftizoxime Allergy Swelling Verified 08/16/24 16:59
ciprofloxacin [From Cipro] Allergy Swelling Verified 08/16/24 16:59
clavulanic acid Allergy Nausea Verified 08/16/24 16:59
[From Augmentin]
gluten Allergy abdominal Verified 08/16/24 16:59
pain
latex [Latex] Allergy Rash Verified 08/16/24 16:59
metronidazole [From Flagyl] Allergy Nausea Verified 08/16/24 16:59
oats Allergy abdominal Verified 08/16/24 16:59
pain-celiac
propranolol Allergy Swelling Verified 08/16/24 16:59
simvastatin Allergy knee Verified 08/16/24 16:59
swelling
Sulfa (Sulfonamide Allergy Rash Verified 08/16/24 16:59
Antibiotics)
sulfisoxazole Allergy Nausea Verified 08/16/24 16:59
tetanus toxoid, adsorbed Allergy rash, Verified 08/16/24 16:59
swelling
of tongue
wheat Allergy abdominal Verified 08/16/24 16:59
pain-celiac
�Medication �Instructions �Recorded �Confirmed �Type
albuterol sulfate 90 mcg/actuation 1 puff inhalation R Q4HPRN PRN sob 01/30/21 12/13/24 History
aerosol inhaler
multivitamin with folic acid 400 1 tab PO QPM Supplement 01/30/21 12/13/24 History
mcg tablet (Tab-A-Ailyn)
ascorbic acid (vitamin C) 500 mg 1,000 mg PO QPM Supplement 01/23/22 12/13/24 History
tablet (Vitamin C)
budesonide 0.5 mg/2 mL suspension 0.5 mg inhalation R BID 01/23/22 12/13/24 History
for nebulization Lung/breathing issues
escitalopram oxalate 5 mg tablet 5 mg PO DAILY Depression 01/23/22 12/13/24 History
fluticasone propionate 50 2 spray intranasal DAILY PRN 01/23/22 12/13/24 History
mcg/actuation nasal congestion
spray,suspension
aspirin 81 mg tablet,delayed 81 mg PO DAILY@1100 Blood Clot 12/03/22 12/13/24 History
release Prevention/Tx
atorvastatin 20 mg tablet 20 mg PO DAILY@1100 High 12/03/22 12/13/24 History
Cholesterol
calcium carbonate (Tums) 200 mg PO BID PRN 12/03/22 12/13/24 History
heartburn/indigestion
carboxymethylcellulose sodium 1 % 2 drp BOTH EYES HS Eye Condition 12/03/22 12/13/24 History
eye liquid gel drops
guaifenesin 600 mg tablet, 600 mg PO Q12H PRN congestion 12/03/22 12/13/24 History
extended release 12 hr (Mucinex)
ipratropium 0.5 mg-albuterol 3 mg 3 ml inhalation R BID 12/03/22 12/13/24 History
(2.5 mg base)/3 mL nebulization Lung/Breathing Issues
soln
omeprazole 40 mg capsule,delayed 40 mg PO DAILY GERD 12/03/22 12/13/24 History
release
carvedilol 12.5 mg tablet 12.5 mg PO BID #60 tabs 12/06/22 12/13/24 Rx
furosemide 20 mg tablet 20 mg PO DAILY #30 tabs 12/06/22 12/13/24 Rx
lisinopril 5 mg tablet 5 mg PO DAILY #30 tabs 12/06/22 12/13/24 Rx
amlodipine 2.5 mg tablet 2.5 mg PO 1XD Blood Pressure 03/05/24 12/13/24 History
acetaminophen 500 mg tablet 1,000 mg (2 x 500 mg) PO TID #0 03/09/24 12/13/24 Rx
(Tylenol Extra Strength) tabs
docusate sodium 100 mg capsule 100 mg PO BID #0 caps 03/09/24 12/13/24 Rx
Review of Systems
-
History Source: Patient
All other systems: Negative unless noted
Physical Exam
Vital Signs
Temp Pulse Resp BP Pulse Ox
97.6 F 53 16 105/84 95
12/13/24 12:37 12/13/24 12:37 12/13/24 12:37 12/13/24 14:11 12/13/24 12:37
Lab Results
12/13/24 12:33
12/13/24 12:33
Troponin I < 0.012 ng/ml 12/13/24 12:33
GEN: No distress, awake, Ox3
HEENT: supple, anicteric, mmm
LUNGS: CTA, no wheezes/rales
CV: Reg, S1/S2, 1/6 syst LSB, no murmur, chest sore with palpation of sternum
ABD: soft, BS+, NT/ND
EXT: No edema
NEURO: Gross non-focal
SKIN: No rash
Impression / Plan
-
PCP: Allyssa Gusman
Cardiology: Dr. Isabel Dixon
Impression:
Chest pain
jaw pain
nonischemic CM
HF recovered EF
HTN
Frequent PVCs
Paroxysmal atrial tachycardia
CM EF 40% by echo 11/07/22
h/o chest pain
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
COPD
h/o CVA
h/o DVT after TKA 02/2022
Multiple medication allergies and intolerances
Echo 07/21/20: EF 50%, mod MR, mild AI
Echo 11/07/22: EF 40%, grade II diastolic dysfunction, normal RV size and function, mod MR, mild and mild aortic regurgitation, mod pulmonic regurgitation
Echo 05/16/2023: LVEF 50%, moderate cLVH, normal RV size and function, mild to moderate MR, mild AI, mild TR
outpatient monitoring analyst 11/17/22: 52 episodes of PAT.
cardiac cath 05/16/2023 : showing anomalous takeoff of the left circumflex from the proximal RCA from the right coronary cusp and 50% stenosis in the mid right PDA. Minimal luminal irregularities in other vessels
Plan:
-presents to [facility] with 05/04 chest, neck, jaw, R shoulder pain, relieved with SL NTG, but then with recurrent CP 01/01, improved with SL NTG, but reoccurred again 01/01. Start NTG gtt with caution given low BP
-troponin negative x 1,, continue to trend
-EKG: SB, RBBB, LAFB
-telemetry personally reviewed: SB/NSR
-check echo
-keep NPO for possible cath.
-cont ASA, statin, beta ana laura, amlodipine as antianginal.
-previously intolerant of isosorbide due to headaches
-check proBNP-I added
Data Reviewed
-
EKG: Tracing Personally Visualized and interpreted
Labs: Labs Reviewed by me
[2024-12-13 16:31] LABS: Troponin I < 0.012 ng/ml
[2024-12-13 16:46] LABS: NT-proBNP 646 pg/ml
--- NOTE | 2024-12-13 16:58 | HPS.HSE ---
Addendum entered and electronically signed by EMMANUEL Goodwin 12/13/24 19:45:
[address] surgery following CTA results for Type A dissection. After review of surgery, patient expressed that she would not want surgery even if eligible. Patients children called and updated on patient status by CT surgery. All agreeable to
comfort care measures. Admission orders changed per update from CT surgery and ED attending.
Original Note:
Family Physician
-
Family Physician: * NONE
Chief Complaint
-
chest pain
History of Present Illness
Patient is a 84-year-old female with past medical history significant for HFrEF, hypertension, hypercholesterolemia, CAD, COPD, GERD and anxiety who presented to [facility] ED for evaluation of chest pain. Patient reports being woken from her sleep with
chest pain that radiated to her jaw and right shoulder. Patient states pain started around 1000 this morning and has been consistent since. She currently rates discomfort at a 5 our of 10 and describes it as something on her chest. Friend at bedside
reports patient has had some recent anxiety and worry regarding her daughter who is currently being treated for ovarian cancer. Patient reports no direct associated symptoms, did have a headache today and had had a productive cough for a few days
with clear mucus. Denies any fever, chills, diaphoresis, shortness of breath, nausea, vomiting, constipation, diarrhea or urinary symptoms.
Medical History
Past Medical History
Past Medical History: Reports Other
Additional Past Medical History:
HFrEF
nonischemic cardiomyopathy
Asthma
CAD
COPD (bronchiectasis)
CVA (left retinal arterial occlusion)
GERD
HTN
Hypercholesterolemia
Valvular Disease
anxiety
heart murmur
rheumatic heart disease
diverticulitis
PNA
Kidney stones
Migraines
Past Surgical History: Reports Other
Additional Past Surgical History:
Hysterectomy
Right knee replacement
Bladder suspension
Hernia repair
Bilateral bunionectomy
Social History
Tobacco: Former Smoker
Alcohol: Occasional
Drug: None
Personal: Single
Living: Alone
Family History
Family History: Not pertinent
Allergies / Home Medications
Allergies reflects when Allergies were last updated in [employer].
Home Medications with original date entered in [employer]
Allergy/Medication List:
Allergies
Allergy/AdvReac Type Severity Reaction Status Date / Time
adhesive [Adhesive] Allergy Rash Verified 08/16/24 16:59
adhesive tape Allergy Unknown Verified 08/16/24 16:59
amoxicillin [From Augmentin] Allergy Nausea / Verified 08/16/24 16:59
Vomiting
barley Allergy abdominal Verified 08/16/24 16:59
pain-celiac
Beta-Blockers Allergy Swelling Verified 08/16/24 16:59
(Beta-Adrenergic Bloc
cefaclor [From Ceclor] Allergy rash and Verified 08/16/24 16:59
nausea
ceftizoxime Allergy Swelling Verified 08/16/24 16:59
ciprofloxacin [From Cipro] Allergy Swelling Verified 08/16/24 16:59
clavulanic acid Allergy Nausea Verified 08/16/24 16:59
[From Augmentin]
gluten Allergy abdominal Verified 08/16/24 16:59
pain
latex [Latex] Allergy Rash Verified 08/16/24 16:59
metronidazole [From Flagyl] Allergy Nausea Verified 08/16/24 16:59
oats Allergy abdominal Verified 08/16/24 16:59
pain-celiac
propranolol Allergy Swelling Verified 08/16/24 16:59
simvastatin Allergy knee Verified 08/16/24 16:59
swelling
Sulfa (Sulfonamide Allergy Rash Verified 08/16/24 16:59
Antibiotics)
sulfisoxazole Allergy Nausea Verified 08/16/24 16:59
tetanus toxoid, adsorbed Allergy rash, Verified 08/16/24 16:59
swelling
of tongue
wheat Allergy abdominal Verified 08/16/24 16:59
pain-celiac
Home Medications
albuterol sulfate 90 mcg/actuation aerosol inhaler 1 puff inhalation R Q4HPRN PRN sob 01/30/21
multivitamin with folic acid 400 mcg tablet (Tab-A-Ailyn) 1 tab PO QPM Supplement 01/30/21
ascorbic acid (vitamin C) 500 mg tablet (Vitamin C) 1,000 mg PO QPM Supplement 01/23/22
budesonide 0.5 mg/2 mL suspension for nebulization 0.5 mg inhalation R BID Lung/breathing issues 01/23/22
escitalopram oxalate 5 mg tablet 5 mg PO DAILY Depression 01/23/22
fluticasone propionate 50 mcg/actuation nasal spray,suspension 2 spray intranasal DAILY PRN congestion 01/23/22
aspirin 81 mg tablet,delayed release 81 mg PO DAILY@1100 Blood Clot Prevention/Tx 12/03/22
atorvastatin 20 mg tablet 20 mg PO DAILY@1100 High Cholesterol 12/03/22
calcium carbonate (Tums) 200 mg PO BID PRN heartburn/indigestion 12/03/22
carboxymethylcellulose sodium 1 % eye liquid gel drops 2 drp BOTH EYES HS Eye Condition 12/03/22
guaifenesin 600 mg tablet, extended release 12 hr (Mucinex) 600 mg PO Q12H PRN congestion 12/03/22
ipratropium 0.5 mg-albuterol 3 mg (2.5 mg base)/3 mL nebulization soln 3 ml inhalation R BID Lung/Breathing Issues 12/03/22
omeprazole 40 mg capsule,delayed release 40 mg PO DAILY GERD 12/03/22
carvedilol 12.5 mg tablet 12.5 mg PO BID #60 tabs 12/06/22
furosemide 20 mg tablet 20 mg PO DAILY #30 tabs 12/06/22
lisinopril 5 mg tablet 5 mg PO DAILY #30 tabs 12/06/22
amlodipine 2.5 mg tablet 2.5 mg PO 1XD Blood Pressure 03/05/24
acetaminophen 500 mg tablet (Tylenol Extra Strength) 1,000 mg (2 x 500 mg) PO TID #0 tabs 03/09/24
docusate sodium 100 mg capsule 100 mg PO BID #0 caps 03/09/24
Review of Systems
-
History Source: Patient
Constitutional: Reports No Symptoms
EENT: Reports No Symptoms
Respiratory: Reports Cough (productive with clear mucus )
Cardiac: Reports Chest Pain (radiated to jaw and right shoulder )
Abdomen/GI: Reports No Symptoms
: Reports No Symptoms
Musculoskeletal: Reports No Symptoms
Skin: Reports No Symptoms
Neurological: Reports No Symptoms
Endocrine: Reports No Symptoms
Hematologic/Lymphatic: Reports No Symptoms
Psych: Reports No Symptoms
Physical Exam
Vital Signs
Vital Signs
Temp Pulse Resp BP Pulse Ox
97.6 F 53 16 105/84 95
12/13/24 12:37 12/13/24 12:37 12/13/24 12:37 12/13/24 14:11 12/13/24 12:37
Physical Exam
General: Well Developed, Well Nourished, No Apparent Distress, Comfortable and Conversant
HEENT: NormoCephalic, Moist mucous membranes, Atraumatic, [place] Conjunctivae, Nose Appears Normal and Ears Appear Normal
Respiratory: Clear and Decreased Breath Sounds
Cardiac: S1/S2 and Regular Rhythm
GI: Soft, Non Tender, Non Distended and Normal Bowel Sounds; No Organomegaly
Rectal: Deferred by Provider
Genito-urinary: Deferred by me
Musculoskeletal: No Clubbing, No Cyanosis and No Edema
Skin: Warm and IV/Catheter Site
Neuro: Awake, Alert, AO x 3 and Nonfocal/grossly intact
Psych: Calm and Intact Judgment/Insight
Laboratory Results
-
12/13/24 12:33
12/13/24 12:33
Laboratory Results
Total Bilirubin 0.7 mg/dl (0.2-1.3) 04/21/25 12:33
AST 24 U/L (14-36) 12/13/24 12:33
ALT 17 U/L (0-35) 12/13/24 12:33
Alkaline Phosphatase 64 U/L (38-126) 12/13/24 12:33
Troponin I < 0.012 ng/ml 12/13/24 15:53
Data Reviewed
-
Diagnostic Radiology: Report Reviewed by me (CXR: Mild bibasilar scarring. No focal airspace disease or pleural effusions. Cardiomegaly.)
Lab Data: Labs Reviewed by me (Trop <0.012, <0.012; BNP 646)
Impression/Plan
-
IMPRESSION/PLAN:
#chest pain
Trop <0.012, < 0.012
BNP 646
EKG: SINUS BRADYCARDIA WITH SHORT NH
RIGHT BUNDLE BRANCH BLOCK
LEFT ANTERIOR FASCICULAR BLOCK
BIFASCICULAR BLOCK
MINIMAL VOLTAGE CRITERIA FOR LVH, MAY BE NORMAL VARIANT ( R in aVL )
CXR: Mild bibasilar scarring. No focal airspace disease or pleural effusions.
CTA chest: pending
Cardiomegaly.
- Admit to IVU
- Consult Cardiology
- nitro gtt
- NPO in case of laboratory cureman
#HFrEF
BNP 646
CXR: Mild bibasilar scarring. No focal airspace disease or pleural effusions.
Cardiomegaly.
- daily weights
- I & Os
- continue furosemide
#hypertension
- continue amlodipine, carvedilol, furosemide and lisinopril
#hypercholesterolemia
- continue atorvastatin
#CAD
- continue aspirin
#COPD
- continue albuterol, budesonide, guaifenesin and DuoNeb
#GERD
- continue omeprazole
#anxiety
- continue escitalopram
Code status: full code
DVT Prophylaxis: Lovenox sq
--- NOTE | 2024-12-13 17:38 | W.PN.UPDATE ---
Update Note
Progress Note Update
I saw and examined the patient.
The ANODE BUILDER's note was reviewed and I agree with the note.
Patient is a 84-year-old female with past medical history of nonischemic myocardiopathy, heart failure with midrange EF, nonobstructive coronary artery disease, anomalous coronary artery, hypertension, history of paroxysmal atrial tachycardia, COPD,
history of stroke stroke, history of provoked DVT came to ER with new onset of sternal chest pain with radiation to jaw and right shoulder at times. Ongoing at time the visit and no associated nausea/diaphoresis/palpitation. Patient was evaluated
by cardiology in the ER and plan to be admitted for further monitoring of chest pain. Patient not endorsing any abdominal/ complaints.
HEENT: No pallor, cyanosis, or jaundice. Throat clear.
NECK: Supple. No JVD.
RESPIRATORY: Lungs clear to auscultation.
CVS: S1, S2 normal. RRR. No murmur, rub or gallop.
ABDOMEN: Soft, non-tender. No distension. BS+/normal.
EXTREMITIES: No peripheral cyanosis or edema.
DRY ROOM OPERATOR: AOx3. No focal deficits.
1. Chest pain
History of nonobstructive coronary disease
- Troponin 2 sets negative, follow-up
- EKG did not show any acute ST segment changes
- Echocardiogram showing ejection fraction 40 to 45%, moderate to severe MR and moderate AI
- Cardiology evaluated and concern of possible aortic dissection, CTA chest has been ordered in ER
- Chest x-ray in ER did not show any significant mediastinal widening
- EKG not showing patient may have mild pericarditis as possible differential
- Patient currently on nitro drip
- Admit patient to IVU for further monitoring
2. Chronic heart failure with midrange EF
-No signs of significant volume overload
-Echocardiogram from the ER reviewed
-Continue home dose Lasix 20 mg daily
3. Paroxysmal atrial tachycardia
History of provoked DVT
- Continue Coreg, not on blood thinner
DVT PPX - lovenox
Total time spent : 77 mins
I personally saw and examined the patient.
I have reviewed all diagnostic interpretations and treatment plans as written.
Time includes patient management by me, time spent at the patients bedside, time to review lab and imaging results, discussing patient care, documentation in the medical record, and time spent with the family or caregiver and discussing care plan
with RN/Consultants.
[2024-12-13] MEDS: ZOFRAN 4 MG IV (19:07)
--- NOTE | 2024-12-13 19:17 | EDRN ---
CT surgery at the pts bedside speaking with the pt and the pts friend, the pt is hypotensive, the pt is lethargic and diaphoretic, providers aware
[2024-12-13] MEDS: NSS 1000 IV (19:18)
[2024-12-13] MEDS: MORPHINE SULFATE 4 MG IV (19:21)
--- NOTE | 2024-12-13 19:26 | W.PN.UPDATE ---
Update Note
Progress Note Update
Patient seen with Dr. Mishra for a Type A Dissection. Upon arrival to patient's room patient was pale, mottled, and hypotensive. She was lethargic and the discussion was had if she would be agreeable to surgery. Patient expressed that she would not
want surgery and given patient's current state surgery was not offered by Dr. Mishra. Patient's children were called to discuss the severity and how compressions at this time will be futile. ED doc present and comfort measures were ordered.
[2024-12-14] VITALS (10 sets, daily range): BP systolic 61–75; BP diastolic 25–54
[2024-12-14] MEDS: PULMICORT 0.5 MG INH (03:59)
--- NOTE | 2024-12-14 08:26 | EDRN ---
this RN called the receiving unit and paper report was tubed up
[2024-12-14] MEDS: MORPHINE SULFATE 2 MG IV ×2 (08:40→12:52)
--- NOTE | 2024-12-14 09:57 | CHAP ---
Fr. Isac Chavez provided Sacrament of the Sick/Last Rites for Ms. Perez on December 13.
--- NOTE | 2024-12-14 11:33 | W.PN.HOSP.TC ---
Today's Communication/Plan
-
Continue comfort measures
Assessment / Plan
Assessment / Plan
12/13
Patient to be maintained on current comfort measures
No reported problems of pain/discomfort
Patient is hypotensive and minimally responsive
Morphine drip has been ordered for to be used if required, clinically seems less likely will be the case

CTA chest
Vasculature: There is a [place] type A dissection along the ascending thoracic aorta beginning approximately 4 cm above the aortic root and extending to the proximal aortic arch at the level of the innominate artery. Dissection does not extend into
the descending thoracic aorta or major branch vessels of the aortic arch. No thoracic aortic aneurysm. Mild to moderate atherosclerotic changes. Origins of the great vessels from the aortic arch are without significant stenosis. Heart is mildly
enlarged. No pulmonary embolus identified. Mild coronary artery calcifications.
Small to moderate pericardial effusion. Mild bilateral lower lobe dependent subsegmental atelectasis. No pulmonary nodules, areas of airspace disease, pleural effusion or enlarged lymph nodes in the thorax. No pneumothorax. Visualized portion of
the upper abdomen is unremarkable.
1. Chest pain
Type A aortic dissection
History of nonobstructive coronary disease
- Troponin 2 sets negative, follow-up
- EKG did not show any acute ST segment changes
- Echocardiogram showing ejection fraction 40 to 45%, moderate to severe MR and moderate AI
- Cardiology evaluated and concern of possible aortic dissection, CTA chest showed type A aortic dissection
- Patient evaluated by cardiothoracic surgeon overnight and family opted for patient to be transition to comfort care
2. Chronic heart failure with midrange EF
-No signs of significant volume overload
-Echocardiogram from the ER reviewed
-Continue home dose Lasix 20 mg daily
3. Paroxysmal atrial tachycardia
History of provoked DVT
- Continue Coreg, not on blood thinner
DVT PPX - lovenox

Anticipated Discharge: Within 24 hours
Subjective/Interval History
-
Date of Service: December 14, 2024
Patient comfortable currently
Family at bedside and no reported issues
Objective Data
-
Vital Signs:
Vital Signs
Temp Pulse Resp BP Pulse Ox
98.2 F 96 14 67/45 85
12/14/24 09:35 12/14/24 09:35 12/14/24 09:35 12/14/24 09:35 12/14/24 09:35
Review of Systems
-
Unable to obtain full review of systems at this time due to: Acuity
Physical Exam
-
General: Negative Appears in Distress or Pain
Neuro: Negative Awake or Alert
[2024-12-14] MEDS: PULMICORT INH (12:16)
--- NOTE | 2024-12-14 13:31 | W.PN.DEATH ---
Addendum entered and electronically signed by Brandon Thomson MD 12/14/24 13:46:
[employer] office notified as regulation.
E- certificate signed
Original Note:
Pronouncement of
-
Called to see patient to pronounce.
No spontaneous heart tones or respirations noted.
Patient not responsive to verbal stimuli.
Patient is pronounced .
Time of : 13:20
Date of : 12/14/24
Cause of : Type A aortic dissection
Family Notified: Yes
--- NOTE | 2024-12-14 13:56 | W.DCSUMMARY ---
Discharge Summary
Discharge Data
Date of Admission: 12/13/24
Date of Discharge: 12/14/24
-
Pending Results: No
Hospital Course
This is a summary on Ms. Maria Del Carmen Hogan who on 12/14/2024 at 1320
List of diagnosis:
[place] type A aortic dissection
Cardiogenic shock
Chronic systolic congestive heart failure
Chronic obstructive pulmonary disease
History of stroke
Gastroesophageal reflux disease
Hypertension
Hyperlipidemia
Severe mitral regurgitation
History rheumatic heart disease
History of nephrolithiasis
Ischemic cardiomyopathy
History of hernia repair
Hospital course:
Patient is 84-year-old female with no mentioned past medical history came to ER with having ongoing chest pain with radiation to back. Patient complained of pain being significant in nature. Initial EKG showed some sinus bradycardia and right
bundle branch block. Emergent echocardiogram was done in ER which showed reduced ejection fraction and grade 2 diastolic dysfunction with increased severity of valvulopathy. Patient pain was not explained clearly by any other test. Clinically
there was concern of patient likely having aortic dissection and emergent CT angiogram chest was done, this showed patient had a new type A aortic dissection. Cardiothoracic surgeon was involved in care and discussed surgical correction, although
after discussion patient and family opted for comfort measures. Patient was started on comfort measures and was admitted to hospital for further care. Patient slowly developed cardiogenic shock and on 12/14/2024 1320. Patient family at
bedside at the time.
Discharge Plan
-
Patient Disposition:
Date/Time
Date/Time: 12/14/24 13:20
Discharge Date and Time
Print Language: [id number]
== END 2024-12-14 13:20 | disposition expired ==
LOC: 2 NORTH 18:57
PROVIDERS: Emergency Medicine; ADMITTING PHYSICIAN Hospitalist; EMERGENCY PHYSICIAN Emergency Medicine; OTHER PHYSICIAN Internal Medicine Cardiovascular Disease
DX: I71.02 Dissection of abdominal aorta (principal); R07.9 Chest pain, unspecified; Z87.891 Personal history of nicotine dependence; I42.8 Other cardiomyopathies; I11.0 Hypertensive heart disease with heart failure; I50.22 Chronic systolic (congestive) heart failure; J44.89 Other specified chronic obstructive pulmonary disease; K21.9 Gastro-esophageal reflux disease without esophagitis; F41.9 Anxiety disorder, unspecified; Z51.5 Encounter for palliative care; I47.19 Other supraventricular tachycardia; R57.0 Cardiogenic shock
CPT/HCPCS: 71046; 71275; 80053; 83880; 84484; 85025; 86850; 86900; 86901; 93005; 93306; 96361; 96374; 99291; G0378; Q9967